=== PATIENT | male | born 1995 | race Caucasian/White ===

== ENCOUNTER 2022-08-22 10:42 | Outpatient (CLI) | payer MEDICAID | END 2022-08-22 23:59 | disposition critical access hospital (66) | LOC: EMS 10:42 | DX: E10.65 Type 1 diabetes mellitus with hyperglycemia (principal); R11.2 Nausea with vomiting, unspecified; R07.89 Other chest pain; R06.82 Tachypnea, not elsewhere classified; R00.0 Tachycardia, unspecified | CPT/HCPCS: A0425; A0427; A0999 ==

== ENCOUNTER 2022-08-22 11:17 | Inpatient (IN) | payer MEDICAID ==
[2022-08-22] MEDS ORDERED: SODIUM CHLORIDE 0.9% 1,000 ML IV STA ×2 (11:38→12:07)
[2022-08-22] MEDS ORDERED: ONDANSETRON 4 MG/2 ML VIAL IVP STA (11:38)
[2022-08-22 12:00] LABS: VBG BASE EXCESS -30.9 mmol/L (-2 - +2); VBG HCO3 3.2 mmol/L (23-28); VBG OXYGEN SATURATION 79.9 % (60-80); VBG PO2 59.2 mmHg (25-47); VBG TOTAL CO2 3.9 mmol/L (24-29)
[2022-08-22 12:01] LABS: BASOPHILS % (AUTO) 0.6 %; EOSINOPHILS % (AUTO) 0.3 %; HCT - HEMATOCRIT 48.2 % (42.0-52.0); HGB - HEMOGLOBIN 15.3 g/dL (14.0-18.0); LYMPHOCYTES % (AUTO) 11.8 %; MEAN CORPUSCULAR HEMOGLOBIN 30.2 pg (27.0-31.0); MEAN CORPUSCULAR HGB CONC 31.7 g/dL (32.0-36.0); MEAN CORPUSCULAR VOLUME 95.3 fL (80.0-94.0); MONOCYTES % (AUTO) 4.7 %; NEUTROPHILS % (AUTO) 79.5 %; PLT - PLATELET COUNT 445 10^3/uL (130-450); RED BLOOD COUNT 5.06 10^6/uL (4.70-6.10); RED CELL DISTRIBUTION WIDTH 12.8 % (12.0-15.0); WHITE BLOOD COUNT 26.6 x10^3/uL (4.8-10.8)
[2022-08-22 12:02] LABS: VBG PH 6.806 (7.31-7.41)
--- NOTE | 2022-08-22 12:03 | ED Physician Documentation ---
History of Present Illness - Stated complaint Stated Complaint: N/V - Chief complaint Chief Complaint: Abd Pain - Additonal information Additional information: 27-year-old male who is a type I diabetic presents to the emergency department for evaluation of uncontrolled nausea and vomiting that began at 1 AM. This patient is traveling here from [place] with his partner. Partner reports that the patient is on Lantus daily as well as NovoLog. Last took 8 units of NovoLog this morning. Went to a local walk-in clinic where blood glucose was over 400 and EMS was summoned. On presentation to the emergency department he has Kusmal breathing. He is lethargic but arousable. He is actively vomiting. Partner reports that he has had a few episodes of DKA over the last few years requiring hospitalization. Partner also reports that he has had TIA or strokelike events History otherwise limited by critical illness and inability to obtain other history Review of Systems Constitutional: denies: Fever GI: reports: Nausea PD PAST MEDICAL HISTORY - Allergies Allergies/Adverse Reactions: Allergies Allergy/AdvReac Type Severity Reaction Status Date / Time Penicillins Allergy Unknown Verified 08/22/22 11:26 Sulfa (Sulfonamide Allergy Unknown Verified 08/22/22 11:26 Antibiotics) PD ED PE EXPANDED - General General: Disheveled, poorly kept, In distress, Lethargic - HEENT HEENT: PERRL, Dry mucous membranes, Other (Grossly dry oral mucosa. Yellow stained teeth.) - Cardiac Cardiac: Tachy, Radial strong equal, Pedal strong equal, Cap refill < 2 sec - Respiratory Respiratory: Other (Cusamal breathing. Tachypneic. Coarse breath sounds bilaterally) - Abdomen Abdomen: Hyperactive BS, Tender to palpation (Generally tender to palpation but no guarding or rebound) - Derm Derm: Normal color, Warm and dry. No: Rash - Neuro Neuro: Confused, CNII-XII intact (Grossly intact on limited exam) - GCS Eye Opening: To Voice Motor: Obeys Commands Verbal: Confused Total: 13 Results - Vitals Vitals: Vital Signs - 24 hr 08/22/22 08/22/22 08/22/22 11:21 12:25 12:26 Temperature 36.3 C L Heart Rate 117 H 123 H 125 H Respiratory 40 H 31 H 40 H Rate Blood Pressure 154/83 H 147/129 H 155/85 H O2 Saturation 99 100 100 08/22/22 13:00 Temperature Heart Rate 123 H Respiratory 43 H Rate Blood Pressure 140/71 H O2 Saturation 99 Oxygen O2 Source Room air - EKG (time done) 1206 EKG releavant findings:: EKG personally interpreted by author of this note. Relevant findings are: Rate: Rate (enter#) (118), Tachy Rhythm: Sinus tachycardia Intervals: Normal DE. No: Prolonged QT QRS: Normal Ischemia: Normal ST segments, Hyperacute T waves (mildly peaked. K 5.7) Compare to prior EKG: Old EKG unavailable Computer interpretation: Agree with computer - Labs Labs: Laboratory Tests 08/22/22 08/22/22 08/22/22 11:23 11:53 11:53 WBC 26.6 H RBC 5.06 Hgb 15.3 Hct 48.2 MCV 95.3 H MCH 30.2 MCHC 31.7 L RDW 12.8 Plt Count 445 MPV 11.0 Neut # (Auto) Not Reportable Lymph # (Auto) Not Reportable Lane # (Auto) Not Reportable Eos # (Auto) Not Reportable Baso # (Auto) Not Reportable Absolute Nucleated RBC Not Reportable Total Counted 100 Band Neuts % (Manual) 17 H Abnorm Lymph % (Manual) 0 Metamyelocytes % 1 H Myelocytes % 2 H Nucleated RBC % Not Reportable Neutrophils # (Manual) 20.7 H Lymphocytes # (Manual) 4.3 H Monocytes # (Manual) 0.8 Eosinophils # (Manual) 0.0 Basophils # (Manual) 0.0 Differential Comment MANUAL DIFFERENTIAL Manual Slide Review Indicated WBC Morphology 1+ VACUOLATION Platelet Estimate INCREASED (>450,000) Platelet Morphology 1+ GIANT PLATELETS VBG pH VBG pCO2 VBG pO2 VBG HCO3 VBG Total CO2 VBG O2 Saturation VBG Base Excess Sodium 135 Potassium 5.7 H Chloride 109 Carbon Dioxide < 6 L* Anion Gap 20.0 H BUN 16 Creatinine 1.3 H Estimated GFR (MDRD) 67 L Glucose 496 H POC Whole Bld Glucose 491 H Lactic Acid Calcium 8.3 L Total Bilirubin 2.0 H AST 29 ALT 21 Alkaline Phosphatase 119 Total Protein 6.6 L Albumin 3.4 Globulin 3.2 Albumin/Globulin Ratio 1.1 Lipase 199 H Urine Color Urine Clarity Urine pH Ur Specific [place] Urine Protein Urine Glucose (UA) Urine Ketones Urine Occult Blood Urine Nitrite Urine Bilirubin Urine Urobilinogen Ur Leukocyte Esterase Urine RBC Urine WBC Ur Squamous Epith Cells Urine Bacteria Ur Microscopic Review Urine Culture Comments Urine Opiates Screen Ur Oxycodone Screen Urine Methadone Screen Ur Propoxyphene Screen Ur Barbiturates Screen Ur Tricyclics Screen Ur Phencyclidine Scrn Ur Amphetamine Screen U Methamphetamines Scrn U Benzodiazepines Scrn Urine Cocaine Screen U Cannabinoids Screen Serum Ketones LARGE H 08/22/22 08/22/22 08/22/22 11:53 11:53 12:18 WBC RBC Hgb Hct MCV MCH MCHC RDW Plt Count MPV Neut # (Auto) Lymph # (Auto) Lane # (Auto) Eos # (Auto) Baso # (Auto) Absolute Nucleated RBC Total Counted Band Neuts % (Manual) Abnorm Lymph % (Manual) Metamyelocytes % Myelocytes % Nucleated RBC % Neutrophils # (Manual) Lymphocytes # (Manual) Monocytes # (Manual) Eosinophils # (Manual) Basophils # (Manual) Differential Comment Manual Slide Review WBC Morphology Platelet Estimate Platelet Morphology VBG pH 6.806 L VBG pCO2 21.0 L VBG pO2 59.2 H VBG HCO3 3.2 L VBG Total CO2 3.9 L VBG O2 Saturation 79.9 VBG Base Excess -30.9 L Sodium Potassium Chloride Carbon Dioxide Anion Gap BUN Creatinine Estimated GFR (MDRD) Glucose POC Whole Bld Glucose Lactic Acid 3.4 H* Calcium Total Bilirubin AST ALT Alkaline Phosphatase Total Protein Albumin Globulin Albumin/Globulin Ratio Lipase Urine Color LIGHT YELLOW Urine Clarity CLEAR Urine pH 5.5 Ur Specific [place] >=1.030 H Urine Protein 30 H Urine Glucose (UA) 500 H Urine Ketones >=80 H Urine Occult Blood SMALL H Urine Nitrite NEGATIVE Urine Bilirubin NEGATIVE Urine Urobilinogen 0.2 (NORMAL) Ur Leukocyte Esterase NEGATIVE Urine RBC None Seen Urine WBC 0-3 Ur Squamous Epith Cells RARE Squamous Urine Bacteria None Seen Ur Microscopic Review INDICATED Urine Culture Comments NOT INDICATED Urine Opiates Screen NEGATIVE Ur Oxycodone Screen NEGATIVE Urine Methadone Screen NEGATIVE Ur Propoxyphene Screen NEGATIVE Ur Barbiturates Screen NEGATIVE Ur Tricyclics Screen NEGATIVE Ur Phencyclidine Scrn NEGATIVE Ur Amphetamine Screen NEGATIVE U Methamphetamines Scrn NEGATIVE U Benzodiazepines Scrn NEGATIVE Urine Cocaine Screen NEGATIVE U Cannabinoids Screen NEGATIVE Serum Ketones - Rads (name of study) cxr Relevant Findings:: Final report received (No acute cardiopulmonary process) PD Medical Decision Making - ED course Complexity details: reviewed results, re-evaluated patient, d/w patient ED course: 27-year-old male who is a type I diabetic presents the emergency department for evaluation of uncontrolled nausea and vomiting that began at 1 AM. He is on NovoLog and long-acting Lantus only. Unclear of last time these medications were administered. He did go to a local walk-in clinic where they found a blood glucose greater than 400 and he was transferred here via EMS. Initial blood glucose here is 491. On presentation the patient appears to be in DKA with kusmal breathing. He is mildly lethargic. Patient presents is tachycardic with a heart rate in the 120s. He is normotensive. He has brisk cap refill. Given history and assuming DKA, we placed 2 large-bore IVs and I ordered 2 L of IV fluids to begin. Initial VBG shows severe acidosis with a pH of 6.8, CO2 of 20 and a Base deficit of -30. He has a large serum ketones. Patient is profoundly acidotic. His CO2 is less than 6 on serum labs. Pt has serum lactate of 3.4 He does have preserved renal function. Initial potassium was 5.7. His EKG was sinus tachycardia did have mildly peaked T waves. I would expect this to improve as he is given insulin which will likely drive potassium intracellular resolving these peaked T waves. CBC shows marked leukocytosis with a white count of 26,000. UA is negative for markers of infection. Chest x-ray shows no acute focal opacities or findings of pneumonia. Blood cultures x2 are pending. Res PCR pending. We will defer antibiotics to the inpatient hospitalist team. Clinically history and exam is consistent with DKA. I have ordered the DKA pathway and initiated insuling gtt once his potassium value was known and I spoke with Dr. Tong hospitalist who graciously agrees to bring the patient in for further evaluation and management of his DKA. This patient will be ad mitted to the ICU. - Critical Care Time(min): 30 Time Includes: Direct patient care, Review records, Reassess patient Data interpretation: Labs, ABG, CXR Departure - Departure Disposition: [facility] DC/Xfer Clinical Impression: DKA, type 1 Qualifiers: Diabetes mellitus complication detail: with coma Qualified Code(s): E10.11 - Type 1 diabetes mellitus with ketoacidosis with coma Condition: Critical
[2022-08-22 12:07] LABS: SLIDE REVIEW? Indicated
[2022-08-22 12:08] LABS: KETONES, SERUM (ACETEST) LARGE (NEGATIVE)
[2022-08-22] MEDS ORDERED: INSULIN REGULAR HUMAN 300 UNIT/3 ML VIAL IVP STA (12:09)
[2022-08-22 12:16] LABS: ALBUMIN 3.4 g/dL (3.2-5.5); ALBUMIN/GLOBULIN RATIO 1.1 (1.0-2.2); ALKALINE PHOSPHATASE 119 IU/L (42-121); ALT ALANINE AMINOTRANSFERASE 21 IU/L (10-60); AST ASPARTATE AMINOTRANSFERASE 29 IU/L (10-42); BUN - BLOOD UREA NITROGEN 16 mg/dL (6-20); CHLORIDE 109 mmol/L (101-111); CREATININE 1.3 mg/dL (0.6-1.2); GFR - MDRD 67 (>89); GLUCOSE 496 mg/dL (70-100); LIPASE 199 U/L (22-51); TOTAL PROTEIN 6.6 g/dL (6.7-8.2)
--- NOTE | 2022-08-22 12:26 | XRAY Report ---
PROCEDURE: Chest 1 View X-Ray INDICATIONS: chest pain TECHNIQUE: One view of the chest was acquired. COMPARISON: None. FINDINGS: Surgical changes and devices: None. Lungs and pleura: No pleural effusions or pneumothorax. Lungs are clear. Mediastinum: Mediastinal contours appear normal. Heart size is normal. Bones and chest wall: No suspicious bony lesions. Overlying soft tissues appear unremarkable. IMPRESSION: Chest without acute cardiopulmonary abnormalities or focal airspace disease. Reviewed by: Yg Garces MD on 08/22/2022 12:25 PM PDT Approved by: Yg Garces MD on 08/22/2022 12:25 PM PDT Station ID: [id number]
[2022-08-22 12:28] LABS: ABNORMAL LYMPHS % (MANUAL) 0 %
[2022-08-22 12:33] LABS: MUDS CUTOFF CONCENTRATIONS CUTOFF CONC BELOW:
[2022-08-22] MEDS: INSULIN REGULAR IN 0.9 % NS 100 UNIT/100 ML BAG IV STA ×2 (12:34→14:06)
[2022-08-22 12:37] LABS: BILIRUBIN,URINE NEGATIVE (NEGATIVE); GLUCOSE, URINE (UA) 500 mg/dL (NEGATIVE); KETONES,URINE (UA) >=80 mg/dL (NEGATIVE); LEUKOCYTE ESTERASE, URINE NEGATIVE (NEGATIVE); NITRITE,URINE NEGATIVE (NEGATIVE); OCCULT BLOOD,URINE SMALL (NEGATIVE); PH,URINE 5.5 PH (5.0-7.5); PROTEIN,URINE 30 mg/dL (NEGATIVE); UROBILINOGEN,URINE 0.2 (NORMAL) E.U./dL (NORMAL)
[2022-08-22 12:39] LABS: CLARITY,URINE CLEAR (CLEAR)
[2022-08-22 12:40] LABS: CALCIUM 8.3 mg/dL (8.5-10.3); POTASSIUM 5.7 mmol/L (3.5-5.0); SODIUM 135 mmol/L (135-145)
[2022-08-22 12:47] LABS: CARBON DIOXIDE - CO2 < 6 mmol/L (21-32)
[2022-08-22 12:53] LABS: AMPHETAMINE SCREEN,URINE NEGATIVE (NEGATIVE); BACTERIA,URINE None Seen /HPF (None Seen); BARBITURATE SCREEN,UR NEGATIVE (NEGATIVE); BENZODIAZEPINES SCREEN, URINE NEGATIVE (NEGATIVE); COCAINE SCREEN URINE NEGATIVE (NEGATIVE); METHADONE SCREEN, URINE NEGATIVE (NEGATIVE); METHAMPHETAMINES SCREEN, URINE NEGATIVE (NEGATIVE); OPIATE SCREEN, URINE NEGATIVE (NEGATIVE); OXYCODONE SCREEN, URINE NEGATIVE (NEGATIVE); PROPOXYPHENE SCREEN, URINE NEGATIVE (NEGATIVE); RBC,URINE None Seen /HPF (0-5); SQUAMOUS EPITHELIAL CELL,UR RARE Squamous (<= Few); THC CANNABINOID SCREEN, URINE NEGATIVE (NEGATIVE); TRICYCLIC ANTIDEPRESSANT,URINE NEGATIVE (NEGATIVE); WBC,URINE 0-3 /HPF (0-3)
[2022-08-22 12:58] LABS: BAND NEUTROPHILS % (MANUAL) 17 %; LYMPHOCYTES # (MANUAL) 4.3 10^3/uL (1.5-3.5); LYMPHOCYTES % (MANUAL) 16 %; METAMYELOCYTES % (MANUAL) 1 %; MONOCYTES # (MANUAL) 0.8 10^3/uL (0.0-1.0); MYELOCYTES % (MANUAL) 2 %; NEUTROPHILS # (MANUAL) 20.7 10^3/uL (1.5-6.6)
[2022-08-22 12:59] LABS: DIFFERENTIAL COMMENT MANUAL DIFFERENTIAL; PLATELET ESTIMATE, MANUAL INCREASED (>450,000) (NORMAL); PLATELET MORPHOLOGY 1+ GIANT PLATELETS (NORMAL); WBC MORPHOLOGY (MULTIPLE) 1+ VACUOLATION (NORMAL)
[2022-08-22] MEDS ORDERED: PROCHLORPERAZINE 10 MG/2 ML VIAL IVP PRN (13:00)
--- NOTE | 2022-08-22 13:12 | HISTORY & PHYSICAL EXAMINATION ---
Chief Complaint - Chief Complaint Chief Complaint: N/V, glu >400 at a clinic and ambulance was summoned History of Present Illness - Admitted From Admitted From:: ED - History Obtained From History obtained from: ED provider, mother on phone, pt and girlfriend Madeleine at bedside - History of Present Illness HPI Comment/Other: This is a 27-year-old male with a history of type 1 diabetes diagnosed at age 19. He also has a history of ADHD with depression and does not want to take medications, according to his mother. He has a history of a quadricuspid aortic valve and does not want to see Cos[employer] Machine [employer]. The patient has had 2 episodes of DKA since age 19, both were with hospitalizations at [facility] in [place], where he lives. The patient is traveling to [facility] from [place] with his girlfriend, they left yesterday, to visit the girlfriend's family who lives on [facility] [address]. Yesterday he felt fine as he left, according to the mother. When they arrived at the home on [facility] [address], they were given well water and the girlfriend says it tasted like metal and the patient says it "tasted like blood". The girlfriend added that it tasted like blood because he had a cut lip and was probably swallowing some of his own blood. He started vomiting yesterday. Today he was taken to a clinic by family members and his glucose was found to be over 400 and an ambulance was contacted to bring him to the ER. The patient was having rapid breathing, was in severe distress with nausea and vomiting, and work-up showed that he has a pH of 6.9, elevated anion gap, large serum ketones, and glucose 497. He was started on IV fluids and the DKA protocol in the ED. The ED provider contacted me and we discussed this patient. He will be admitted to the ICU for DKA protocol. Patient continues to have abdominal discomfort and is nauseated but is thirsty. He denies any recent URI, fever, cough, diarrhea or other symptoms, until his N/V started. His mother reported to me that he does not check his sugar often enough. The patient says he checks it about 2 times a day. He is taking both long-acting and short acting insulin. History - Past Medical History Cardiovascular: reports: Valve disorder (Quadricuspid valve) Neuro: reports: TIA (1 year ago, sx were facial dropp abnormal speech and confusion.) Endocrine/Autoimmune: reports: Type 1 diabetes Psych: reports: Depression (Mother reports that the patient refuses to take meds for these Dx), ADD/ADHD - Family & Social History Family History: Mother: Alive and Well, Father: Cancer (Father has bipolar disorder, and several cancers) Living arrangement: At home Living Situation: With family Social History Notes: The patient lives with his grandmother, which is next door to where his mother lives. Girlfriend lives with her parents, not with this patient. 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 Cording to his mother, he does not smoke cigarettes and does not use illicit drugs. - Substance History Use: Uses substance without health or social issues: NONE Meds/Allgy - Home Medications Home Medications: Ambulatory Orders Medication Instructions Recorded Confirmed Insulin Aspart [Novolog Flexpen] 5 - 20 unit SQ TIDWM MDD 80 UNITS 08/22/22 08/22/22 - Allergies Allergies/Adverse Reactions: Allergies Allergy/AdvReac Type Severity Reaction Status Date / Time Penicillins Allergy Unknown Verified 08/22/22 11:26 Sulfa (Sulfonamide Allergy Unknown Verified 08/22/22 11:26 Antibiotics) Review of Systems - Gastrointestinal Gastrointestinal: reports: Abdominal pain, Nausea, Vomiting - All Other Systems All Other Systems: reports: Reviewed and negative Exam - Vital Signs Vital Signs: Vital Signs x48h Temp Pulse Resp BP Pulse Ox 08/22/22 13:00 123 H 43 H 140/71 H 99 08/22/22 12:26 125 H 40 H 155/85 H 100 08/22/22 12:25 123 H 31 H 147/129 H 100 08/22/22 11:21 36.3 C L 117 H 40 H 154/83 H 99 - Physical Exam General Appearance: positive: Moderate distress (from N/V, is tachypnic and appears anxious) Eyes Bilateral: positive: Normal inspection, No lid inflammation ENT: positive: Dry mucous membranes Neck: positive: Nml inspection, No JVD Respiratory: positive: Breath sounds nml Cardiovascular: positive: Regular rate & rhythm, No murmur, Tachycardia Abdomen: positive: Non-tender, No distention Skin: positive: Warm, Dry Extremities: positive: Non-tender, No pedal edema Neurologic/Psychiatric: positive: Oriented x3, Motor nml, Other (Appears anxious) Conclusion/Plan - Problem List (1) DKA, type 1 Conclusion/Plan: Details of how he started to get ill were not yet known in ER, as he was too lethargic to give a detailed history. I obtained Hx from mother. He did report to me the well water intake, which lead to vomiting. Plan: We will admit him to the ICU, started DKA protocol, close follow-up of his serum ketones, glucose level, electrolytes Continue aggressive iv fluids Start iv Bicarb drip Give IV antiemetics and diet will be NPO except ice chips and clear water sips. Check A1c with a.m. labs We will request a nutrition consult as well, to give recommendations going forward Will research if any bacteria may be suspected from well water intake. If he develops diarrhea, will send stool for bacterial cultures. Qualifiers: Qualified Code(s): E10.11 - Type 1 diabetes mellitus with ketoacidosis with coma (2) ADHD Conclusion/Plan: According to his mother this patient has ADHD with depression but refuses to take any meds for this. Today he appears very anxious, on top of having tachypnea due to his metabolic acidosis. Plan: Will order prn iv Ativan to treat his anxiety Await for a reconciled med list by pharmacy to start any other meds. (3) History of TIA (transient ischemic attack) Conclusion/Plan: If that was the final Dx, he should be on daily baby aspirin. Plan: Will await finalized med list from pharmacy and resume it - Lab Results Fish Bones: 08/22/22 11:53 08/22/22 18:15 - Diagnostic Imaging Results Diagnostic Imaging Results: positive: Final report reviewed - Other Other Results/Comments: Attestation: The patient is expected to admitted > 2 midnight and to be discharged or transferred to another facility within 96 hours: Yes.
[2022-08-22 13:43] LABS: VBG PCO2 21.2 mmHg (41-51)
[2022-08-22 13:44] LABS: VBG HCO3 2.6 mmol/L (23-28); VBG PO2 61.3 mmHg (25-47)
[2022-08-22 13:45] LABS: VBG BASE EXCESS -33.7 mmol/L (-2 - +2); VBG TOTAL CO2 3.3 mmol/L (24-29)
[2022-08-22 13:48] LABS: VBG PH 6.711 (7.31-7.41)
[2022-08-22] MEDS ORDERED: SODIUM CHLORIDE 0.9% 1,000 ML IV SCH (14:00)
[2022-08-22 14:01] LABS: BUN - BLOOD UREA NITROGEN 17 mg/dL (6-20); CALCIUM 7.9 mg/dL (8.5-10.3); CHLORIDE 111 mmol/L (101-111); CREATININE 1.3 mg/dL (0.6-1.2); GFR - MDRD 67 (>89); GLUCOSE 397 mg/dL (70-100); MAGNESIUM 2.6 mg/dL (1.7-2.8); POTASSIUM 5.7 mmol/L (3.5-5.0); SODIUM 139 mmol/L (135-145)
[2022-08-22] MEDS ORDERED: SODIUM BICARBONATE ABBOJECT 50 MEQ/50 ML SYRINGE IVP ONE (14:01)
[2022-08-22 14:02] LABS: B. PARAPERTUSSIS- RESP PCR PAN NOT DETECTED; B. PERTUSSIS- RESP PCR PANEL NOT DETECTED; C. PNEUMONIAE- RESP PCR PANEL NOT DETECTED; CORONAVIRUS 229E-RESP PCR NOT DETECTED; CORONAVIRUS HKU1-RESP PCR NOT DETECTED; CORONAVIRUS NL63-RESP PCR NOT DETECTED; CORONAVIRUS OC43-RESP PCR NOT DETECTED; HUMAN METAPNEUMOVIRUS NOT DETECTED; INFLUENZA A- RESP PCR PANEL NOT DETECTED; INFLUENZA B - RESP PCR PANEL NOT DETECTED; M. PNEUMONIAE- RESP PCR PANEL NOT DETECTED; PARAINFLUENZA VIRUS 1 NOT DETECTED; PARAINFLUENZA VIRUS 2 NOT DETECTED; PARAINFLUENZA VIRUS 3 NOT DETECTED; PARAINFLUENZA VIRUS 4 NOT DETECTED; RHINOVIRUS/ENTEROVIRUS NOT DETECTED; RSV- RESP PCR PANEL NOT DETECTED; SARS-CoV-2 -RESP PCR PANEL NOT DETECTED
[2022-08-22 14:04] LABS: CARBON DIOXIDE - CO2 < 6 mmol/L (21-32)
[2022-08-22] MEDS: ONDANSETRON 4 MG/2 ML VIAL IVP PRN ×2 (14:04→20:50)
[2022-08-22 14:09] LABS: KETONES, SERUM (ACETEST) LARGE (NEGATIVE)
[2022-08-22] MEDS ORDERED: SODIUM BICARBONATE 8.4% 50 MEQ/50 ML VIAL ONE (14:15)
[2022-08-22] MEDS: SODIUM BICARBONATE 150 MEQ in DEXTROSE 5% 1,000 ML IV SCH (14:37)
[2022-08-22 14:41] LABS: KETONES, SERUM (ACETEST) LARGE (NEGATIVE)
[2022-08-22 14:50] LABS: BUN - BLOOD UREA NITROGEN 16 mg/dL (6-20); CHLORIDE 112 mmol/L (101-111); CREATININE 1.3 mg/dL (0.6-1.2); GFR - MDRD 67 (>89); GLUCOSE 338 mg/dL (70-100); MAGNESIUM 2.6 mg/dL (1.7-2.8); SODIUM 138 mmol/L (135-145)
[2022-08-22 14:51] LABS: POTASSIUM 5.8 mmol/L (3.5-5.0)
[2022-08-22 14:52] LABS: CARBON DIOXIDE - CO2 < 6 mmol/L (21-32)
[2022-08-22] MEDS: INSULIN REGULAR IN 0.9 % NS 100 UNIT/100 ML BAG IV SCH (15:00)
[2022-08-22] MEDS ORDERED: LORazepam 2 MG/ML VIAL IVP PRN ×3 (15:20→19:26)
[2022-08-22 16:24] LABS: KETONES, SERUM (ACETEST) MODERATE (NEGATIVE)
[2022-08-22] MEDS: SODIUM CHLORIDE FLUSH 0.9% 10 ML SYRINGE IVP SCH (16:30)
[2022-08-22 16:37] LABS: BUN - BLOOD UREA NITROGEN 15 mg/dL (6-20); CHLORIDE 114 mmol/L (101-111); CREATININE 1.4 mg/dL (0.6-1.2); GFR - MDRD 62 (>89); GLUCOSE 197 mg/dL (70-100); MAGNESIUM 2.3 mg/dL (1.7-2.8); POTASSIUM 4.9 mmol/L (3.5-5.0); SODIUM 143 mmol/L (135-145)
[2022-08-22 16:40] LABS: CARBON DIOXIDE - CO2 6 mmol/L (21-32)
[2022-08-22] MEDS ORDERED: DEXTROSE 5% 1,000 ML IV ONE (17:04)
[2022-08-22] MEDS: DEXTROSE 5% 1,000 ML IV SCH (17:07)
[2022-08-22 18:25] LABS: KETONES, SERUM (ACETEST) MODERATE (NEGATIVE)
[2022-08-22 18:28] LABS: GLUCOSE 117 mg/dL (70-100)
[2022-08-22] MEDS: SODIUM CHLORIDE 0.9% 1,000 ML IV SCH ×2 (19:57→21:49)
[2022-08-22] MEDS: ACETAMINOPHEN 325 MG TABLET PO PRN (20:45)
[2022-08-22] MEDS: FAMOTIDINE 20 MG/2 ML VIAL IVP SCH (20:46)
[2022-08-22 22:23] LABS: CALCIUM, IONIZED 1.12 mmol/L (1.15-1.33)
[2022-08-22 22:27] LABS: VBG PH 7.022 (7.31-7.41)
[2022-08-22 22:31] LABS: PHOSPHORUS 3.3 mg/dL (2.5-4.6); POTASSIUM 4.6 mmol/L (3.5-5.0)
[2022-08-23] MEDS: SODIUM CHLORIDE 0.9% 1,000 ML IV SCH ×5 (00:06→17:14)
[2022-08-23] MEDS: SODIUM BICARBONATE 150 MEQ in DEXTROSE 5% 1,000 ML IV SCH (01:54)
[2022-08-23] MEDS: INSULIN REGULAR IN 0.9 % NS 100 UNIT/100 ML BAG IV SCH ×3 (02:17→20:42)
[2022-08-23] MEDS: SODIUM CHLORIDE FLUSH 0.9% 10 ML SYRINGE IVP SCH ×3 (02:17→17:14)
[2022-08-23 04:34] LABS: BASOPHILS % (AUTO) 0.2 %; HCT - HEMATOCRIT 37.8 % (42.0-52.0); HGB - HEMOGLOBIN 12.9 g/dL (14.0-18.0); LYMPHOCYTES # (AUTO) 1.2 10^3/uL (1.5-3.5); LYMPHOCYTES % (AUTO) 7.2 %; MEAN CORPUSCULAR HEMOGLOBIN 30.9 pg (27.0-31.0); MEAN CORPUSCULAR HGB CONC 34.1 g/dL (32.0-36.0); MEAN CORPUSCULAR VOLUME 90.4 fL (80.0-94.0); MEAN PLATELET VOLUME 10.4 fL (7.4-11.4); MONOCYTES # (AUTO) 1.3 10^3/uL (0.0-1.0); NEUTROPHILS # (AUTO) 13.7 10^3/uL (1.5-6.6); PLT - PLATELET COUNT 233 10^3/uL (130-450); RED BLOOD COUNT 4.18 10^6/uL (4.70-6.10); WHITE BLOOD COUNT 16.3 x10^3/uL (4.8-10.8)
[2022-08-23 04:35] LABS: CALCIUM, IONIZED 1.08 mmol/L (1.15-1.33); VBG PH 7.342 (7.31-7.41)
[2022-08-23] MEDS: DEXTROSE 5% 1,000 ML IV SCH ×2 (05:05→17:12)
[2022-08-23 05:15] LABS: CALCIUM 7.6 mg/dL (8.5-10.3); CREATININE 1.1 mg/dL (0.6-1.2); PHOSPHORUS 1.9 mg/dL (2.5-4.6); POTASSIUM 3.2 mmol/L (3.5-5.0)
[2022-08-23] MEDS ORDERED: POTASSIUM PHOSPHATE 15 MMOL in SODIUM CHLORIDE 0.9% 250 ML IV ONE (05:23)
[2022-08-23] MEDS ORDERED: CALCIUM GLUC 1,000MG/50ML-NACL 1,000 MG/50 ML BAG IV ONE (05:24)
[2022-08-23] MEDS ORDERED: POTASSIUM CHLOR 10 MEQ/100 ML 10 MEQ/100 ML BAG IV SCH ×3 (06:00→07:00)
[2022-08-23 07:58] LABS: CALCIUM, IONIZED 1.13 mmol/L (1.15-1.33); VBG PH 7.344 (7.31-7.41)
[2022-08-23] MEDS: POTASSIUM CHLOR 10 MEQ/100 ML 10 MEQ/100 ML BAG IV SCH ×10 (09:05→22:58)
[2022-08-23] MEDS: FAMOTIDINE 20 MG/2 ML VIAL IVP SCH ×2 (09:05→20:37)
[2022-08-23 10:43] LABS: ESTIMATED AVERAGE GLUCOSE 235 mg/dL (70-100); HEMOGLOBIN A1c% 9.8 % (4.27-6.07)
--- NOTE | 2022-08-23 11:00 | PHARMACY PROGRESS NOTE ---
- Best Possible Medication History Admit Date and Time: 08/22/22 0210 Processed by: Pharmacy Medication History completed: Yes Patient Interview: Pt unable to participate Secondary Source(s): [facility] records ([facility]. PT HAD SHORT COURSE OF KCL IN JUNE, MEQ, X ~ 7 DAYS.), Insurance records As the person ultimately responsible for medication therapy, providers are able to order a medication from an existing home medication list in [facility] via the "Reconcile Routine" prior to Confirmation of that medication by application support. Such practice is discouraged except when the physician, in their clinical judgment, deems that a medical need exists for a medication without regard to previous use.
[2022-08-23 11:26] LABS: GLUCOSE, URINE (UA) 250 mg/dL (NEGATIVE); KETONES,URINE (UA) 40 mg/dL (NEGATIVE); LEUKOCYTE ESTERASE, URINE NEGATIVE (NEGATIVE); NITRITE,URINE NEGATIVE (NEGATIVE); OCCULT BLOOD,URINE MODERATE (NEGATIVE); PROTEIN,URINE 30 mg/dL (NEGATIVE); UROBILINOGEN,URINE 0.2 (NORMAL) E.U./dL (NORMAL)
[2022-08-23 11:33] LABS: BILIRUBIN,URINE NEGATIVE (NEGATIVE); CLARITY,URINE CLOUDY (CLEAR); ICTOTEST,URINE NEGATIVE
[2022-08-23 11:35] LABS: BACTERIA,URINE Few /HPF (None Seen); RBC,URINE 0-5 /HPF (0-5); SQUAMOUS EPITHELIAL CELL,UR NONE SEEN (<= Few); WBC,URINE 0-3 /HPF (0-3)
[2022-08-23 11:36] LABS: AMORPHOUS SEDIMENT,UR Moderate /LPF
--- NOTE | 2022-08-23 13:19 | CT Report ---
PROCEDURE: ABDOMEN/PELVIS WO INDICATIONS: N/V, elevated Lipase. Eval for Pancreatitis TECHNIQUE: Noncontrast 5 mm thick sections acquired from the diaphragms to the symphysis. 5 mm coronal and sagi ttal reformats were then performed. For radiation dose reduction, the following was used: automated exposure control, adjustment of mA and/or kV according to patient size. COMPARISON: None. FINDINGS: Image quality: Excellent. Evaluation of the solid parenchymal organs is limited without IV contrast. Kidneys and ureters: No hydronephrosis. No renal cystic lesion which requires follow up. No solid mas s. Bladder: Bladder is decompressed with Valenzuela catheter. OTHER: Lung bases and heart: Unremarkable. Liver: Focal fatty eventration at the falciform ligament. Gallbladder and biliary tree: Not distended. No calcified gallstones. Spleen: No splenomegaly. Pancreas: Trace fluid near the tail the pancreas. Adrenals: No adrenal nodule. Bowel and peritoneum: Inflammatory change about the duodenal C-loop, (). Stomach is not significa ntly distended. No small bowel obstruction. Normal appendix. Lymph nodes: No central or retroperitoneal adenopathy. Vessels: No infrarenal aortic aneurysm. Reproductive organs: Small amount of free fluid in the pelvis. Pelvic lymph nodes: No adenopathy by size criteria. Bones: No aggressive osseous abnormality. Other: No significant ventral or inguinal hernia. IMPRESSION: 1. Inflammatory change about the pancreas and duodenum none. Findings in keeping with acute interstit ial edematous pancreatitis and/or duodenitis. No loculated appearing collection at this time. 2. Small amount of free fluid in the pelvis. 3. No kidney stones. No hydronephrosis. Reviewed by: Arvin Bridges MD on 08/23/2022 1:18 PM PDT Approved by: Arvin Bridges MD on 08/23/2022 1:18 PM PDT Station ID: [id number]
--- NOTE | 2022-08-23 13:52 | PROVIDER PROGRESS NOTE ---
Subjective - Subjective Pt reports feeling: Improved (No more yachypnea, less abd pain, but vomited water at 0300) Objective - Vital Signs/Intake & Output Vital Signs: Vital Signs Temp Pulse Resp BP Pulse Ox 08/23/22 13:00 106 H 18 139/88 H 100 08/23/22 12:00 111 H 20 136/93 H 100 08/23/22 11:19 37.1 C 08/23/22 11:00 112 H 19 138/93 H 99 08/23/22 10:00 120 H 23 141/95 H 95 Intake & Output: Intake & Output 08/20/22 08/21/22 08/22/22 08/23/22 23:59 23:59 23:59 23:59 Intake Total 6034.238 4720.849 Output Total 3885 2390 Balance 2149.238 2330.849 - Objective General Appearance: positive: No acute distress, Lethargic (sleeping most of the day) Eyes Bilateral: positive: Normal inspection ENT: positive: No signs of dehydration Neck: positive: Nml inspection Respiratory: positive: No respiratory distress, Breath sounds nml Cardiovascular: positive: Regular rate & rhythm, No murmur Abdomen: positive: No distention, Tenderness (minimal) Skin: positive: Warm, Dry Extremities: positive: Non-tender, No pedal edema Neurologic/Psychiatric: positive: Oriented x3, Motor nml - Lab Results Fish Bones: 08/23/22 04:25 08/23/22 14:56 Other Labs: Lab Results x24hrs 08/23/22 08/23/22 08/23/22 Range/Units 13:03 12:09 11:18 WBC (4.8-10.8) x10^3/uL RBC (4.70-6.10) 10^6/uL Hgb (14.0-18.0) g/dL Hct (42.0-52.0) % MCV (80.0-94.0) fL MCH (27.0-31.0) pg MCHC (32.0-36.0) g/dL RDW (12.0-15.0) % Plt Count (130-450) 10^3/uL MPV (7.4-11.4) fL Neut # (Auto) (1.5-6.6) 10^3/uL Lymph # (Auto) (1.5-3.5) 10^3/uL [place] # (Auto) (0.0-1.0) 10^3/uL Eos # (Auto) (0.0-0.7) 10^3/uL Baso # (Auto) (0.0-0.1) 10^3/uL Absolute Nucleated RBC x10^3/uL Nucleated RBC % /100WBC VBG pH (7.31-7.41) Ionized Calcium (1.15-1.33) mmol/L Sodium (135-145) mmol/L Potassium (3.5-5.0) mmol/L Chloride (101-111) mmol/L Carbon Dioxide (21-32) mmol/L Anion Gap BUN (6-20) mg/dL Creatinine (0.6-1.2) mg/dL Estimated GFR (MDRD) (>89) Glucose (70-100) mg/dL POC Whole Bld Glucose 263 H 213 H (70 - 100) mg/dL Estimat Average Glucose (70-100) mg/dL Hemoglobin A1c % (4.27-6.07) % Calcium (8.5-10.3) mg/dL Phosphorus (2.5-4.6) mg/dL Magnesium (1.7-2.8) mg/dL Triglycerides ( - 149) mg/dL Lipase (22-51) U/L Urine Color Urine Clarity (CLEAR) Urine pH (5.0-7.5) PH Ur Specific [place] (1.002-1.030) Urine Protein (NEGATIVE) mg/dL Urine Glucose (UA) (NEGATIVE) mg/dL Urine Ketones (NEGATIVE) mg/dL Urine Occult Blood (NEGATIVE) Urine Nitrite (NEGATIVE) Urine Bilirubin (NEGATIVE) Urine Urobilinogen (NORMAL) E.U./dL Ur Leukocyte Esterase (NEGATIVE) Urine RBC (0-5) /HPF Urine WBC (0-3) /HPF Ur Squamous Epith Cells (<= Few) Amorphous Sediment /LPF Urine Bacteria (None Seen) /HPF Ur Microscopic Review Urine Culture Comments Nasal Adenovirus (PCR) Nasal B. parapertussis DNA (PCR) Nasal Coronavir 229E PCR Nasal Coronavir HKU1 PCR Nasal Coronavir NL63 PCR Nasal Coronavir OC43 PCR Nasal Enterovir/Rhinovir PCR Nasal Influenza B PCR Nasal Influenza A PCR Nasal Parainfluen 1 PCR Nasal Parainfluen 2 PCR Nasal Parainfluen 3 PCR Nasal Parainfluen 4 PCR Nasal RSV (PCR) Nasal Screen MRSA (PCR) (NEGATIVE) Nasal B.pertussis DNA PCR Nasal C.pneumoniae (PCR) Sudeep Human Metapneumo PCR Nasal M.pneumoniae (PCR) Nasal SARS-CoV-2 (PCR) Serum Ketones SMALL H (NEGATIVE) 08/23/22 08/23/22 08/23/22 Range/Units 11:00 10:43 09:50 WBC (4.8-10.8) x10^3/uL RBC (4.70-6.10) 10^6/uL Hgb (14.0-18.0) g/dL Hct (42.0-52.0) % MCV (80.0-94.0) fL MCH (27.0-31.0) pg MCHC (32.0-36.0) g/dL RDW (12.0-15.0) % Plt Count (130-450) 10^3/uL MPV (7.4-11.4) fL Neut # (Auto) (1.5-6.6) 10^3/uL Lymph # (Auto) (1.5-3.5) 10^3/uL [place] # (Auto) (0.0-1.0) 10^3/uL Eos # (Auto) (0.0-0.7) 10^3/uL Baso # (Auto) (0.0-0.1) 10^3/uL Absolute Nucleated RBC x10^3/uL Nucleated RBC % /100WBC VBG pH (7.31-7.41) Ionized Calcium (1.15-1.33) mmol/L Sodium (135-145) mmol/L Potassium (3.5-5.0) mmol/L Chloride (101-111) mmol/L Carbon Dioxide (21-32) mmol/L Anion Gap BUN (6-20) mg/dL Creatinine (0.6-1.2) mg/dL Estimated GFR (MDRD) (>89) Glucose (70-100) mg/dL POC Whole Bld Glucose 189 H 177 H (70 - 100) mg/dL Estimat Average Glucose (70-100) mg/dL Hemoglobin A1c % (4.27-6.07) % Calcium (8.5-10.3) mg/dL Phosphorus (2.5-4.6) mg/dL Magnesium (1.7-2.8) mg/dL Triglycerides ( - 149) mg/dL Lipase (22-51) U/L Urine Color YELLOW Urine Clarity CLOUDY (CLEAR) Urine pH 6.0 (5.0-7.5) PH Ur Specific [place] >=1.030 H (1.002-1.030) Urine Protein 30 H (NEGATIVE) mg/dL Urine Glucose (UA) 250 H (NEGATIVE) mg/dL Urine Ketones 40 H (NEGATIVE) mg/dL Urine Occult Blood MODERATE H (NEGATIVE) Urine Nitrite NEGATIVE (NEGATIVE) Urine Bilirubin NEGATIVE (NEGATIVE) Urine Urobilinogen 0.2 (NORMAL) (NORMAL) E.U./dL Ur Leukocyte Esterase NEGATIVE (NEGATIVE) Urine RBC 0-5 (0-5) /HPF Urine WBC 0-3 (0-3) /HPF Ur Squamous Epith Cells NONE SEEN (<= Few) Amorphous Sediment Moderate /LPF Urine Bacteria Few (None Seen) /HPF Ur Microscopic Review INDICATED Urine Culture Comments NOT INDICATED Nasal Adenovirus (PCR) Nasal B. parapertussis DNA (PCR) Nasal Coronavir 229E PCR Nasal Coronavir HKU1 PCR Nasal Coronavir NL63 PCR Nasal Coronavir OC43 PCR Nasal Enterovir/Rhinovir PCR Nasal Influenza B PCR Nasal Influenza A PCR Nasal Parainfluen 1 PCR Nasal Parainfluen 2 PCR Nasal Parainfluen 3 PCR Nasal Parainfluen 4 PCR Nasal RSV (PCR) Nasal Screen MRSA (PCR) (NEGATIVE) Nasal B.pertussis DNA PCR Nasal C.pneumoniae (PCR) Sudeep Human Metapneumo PCR Nasal M.pneumoniae (PCR) Nasal SARS-CoV-2 (PCR) Serum Ketones (NEGATIVE) 08/23/22 08/23/22 08/23/22 Range/Units 09:25 08:46 07:44 WBC (4.8-10.8) x10^3/uL RBC (4.70-6.10) 10^6/uL Hgb (14.0-18.0) g/dL Hct (42.0-52.0) % MCV (80.0-94.0) fL MCH (27.0-31.0) pg MCHC (32.0-36.0) g/dL RDW (12.0-15.0) % Plt Count (130-450) 10^3/uL MPV (7.4-11.4) fL Neut # (Auto) (1.5-6.6) 10^3/uL Lymph # (Auto) (1.5-3.5) 10^3/uL [place] # (Auto) (0.0-1.0) 10^3/uL Eos # (Auto) (0.0-0.7) 10^3/uL Baso # (Auto) (0.0-0.1) 10^3/uL Absolute Nucleated RBC x10^3/uL Nucleated RBC % /100WBC VBG pH 7.344 (7.31-7.41) Ionized Calcium 1.13 L (1.15-1.33) mmol/L Sodium (135-145) mmol/L Potassium (3.5-5.0) mmol/L Chloride (101-111) mmol/L Carbon Dioxide (21-32) mmol/L Anion Gap BUN (6-20) mg/dL Creatinine (0.6-1.2) mg/dL Estimated GFR (MDRD) (>89) Glucose (70-100) mg/dL POC Whole Bld Glucose 167 H (70 - 100) mg/dL Estimat Average Glucose (70-100) mg/dL Hemoglobin A1c % (4.27-6.07) % Calcium (8.5-10.3) mg/dL Phosphorus (2.5-4.6) mg/dL Magnesium (1.7-2.8) mg/dL Triglycerides ( - 149) mg/dL Lipase (22-51) U/L Urine Color Urine Clarity (CLEAR) Urine pH (5.0-7.5) PH Ur Specific [place] (1.002-1.030) Urine Protein (NEGATIVE) mg/dL Urine Glucose (UA) (NEGATIVE) mg/dL Urine Ketones (NEGATIVE) mg/dL Urine Occult Blood (NEGATIVE) Urine Nitrite (NEGATIVE) Urine Bilirubin (NEGATIVE) Urine Urobilinogen (NORMAL) E.U./dL Ur Leukocyte Esterase (NEGATIVE) Urine RBC (0-5) /HPF Urine WBC (0-3) /HPF Ur Squamous Epith Cells (<= Few) Amorphous Sediment /LPF Urine Bacteria (None Seen) /HPF Ur Microscopic Review Urine Culture Comments Nasal Adenovirus (PCR) Nasal B. parapertussis DNA (PCR) Nasal Coronavir 229E PCR Nasal Coronavir HKU1 PCR Nasal Coronavir NL63 PCR Nasal Coronavir OC43 PCR Nasal Enterovir/Rhinovir PCR Nasal Influenza B PCR Nasal Influenza A PCR Nasal Parainfluen 1 PCR Nasal Parainfluen 2 PCR Nasal Parainfluen 3 PCR Nasal Parainfluen 4 PCR Nasal RSV (PCR) Nasal Screen MRSA (PCR) (NEGATIVE) Nasal B.pertussis DNA PCR Nasal C.pneumoniae (PCR) Sudeep Human Metapneumo PCR Nasal M.pneumoniae (PCR) Nasal SARS-CoV-2 (PCR) Serum Ketones SMALL H (NEGATIVE) 08/23/22 08/23/22 08/23/22 Range/Units 07:44 07:44 07:29 WBC (4.8-10.8) x10^3/uL RBC (4.70-6.10) 10^6/uL Hgb (14.0-18.0) g/dL Hct (42.0-52.0) % MCV (80.0-94.0) fL MCH (27.0-31.0) pg MCHC (32.0-36.0) g/dL RDW (12.0-15.0) % Plt Count (130-450) 10^3/uL MPV (7.4-11.4) fL Neut # (Auto) (1.5-6.6) 10^3/uL Lymph # (Auto) (1.5-3.5) 10^3/uL [place] # (Auto) (0.0-1.0) 10^3/uL Eos # (Auto) (0.0-0.7) 10^3/uL Baso # (Auto) (0.0-0.1) 10^3/uL Absolute Nucleated RBC x10^3/uL Nucleated RBC % /100WBC VBG pH (7.31-7.41) Ionized Calcium (1.15-1.33) mmol/L Sodium (135-145) mmol/L Potassium 3.3 L (3.5-5.0) mmol/L Chloride (101-111) mmol/L Carbon Dioxide (21-32) mmol/L Anion Gap BUN (6-20) mg/dL Creatinine (0.6-1.2) mg/dL Estimated GFR (MDRD) (>89) Glucose (70-100) mg/dL POC Whole Bld Glucose 152 H (70 - 100) mg/dL Estimat Average Glucose (70-100) mg/dL Hemoglobin A1c % (4.27-6.07) % Calcium (8.5-10.3) mg/dL Phosphorus (2.5-4.6) mg/dL Magnesium (1.7-2.8) mg/dL Triglycerides ( - 149) mg/dL Lipase (22-51) U/L Urine Color Urine Clarity (CLEAR) Urine pH (5.0-7.5) PH Ur Specific [place] (1.002-1.030) Urine Protein (NEGATIVE) mg/dL Urine Glucose (UA) (NEGATIVE) mg/dL Urine Ketones (NEGATIVE) mg/dL Urine Occult Blood (NEGATIVE) Urine Nitrite (NEGATIVE) Urine Bilirubin (NEGATIVE) Urine Urobilinogen (NORMAL) E.U./dL Ur Leukocyte Esterase (NEGATIVE) Urine RBC (0-5) /HPF Urine WBC (0-3) /HPF Ur Squamous Epith Cells (<= Few) Amorphous Sediment /LPF Urine Bacteria (None Seen) /HPF Ur Microscopic Review Urine Culture Comments Nasal Adenovirus (PCR) Nasal B. parapertussis DNA (PCR) Nasal Coronavir 229E PCR Nasal Coronavir HKU1 PCR Nasal Coronavir NL63 PCR Nasal Coronavir OC43 PCR Nasal Enterovir/Rhinovir PCR Nasal Influenza B PCR Nasal Influenza A PCR Nasal Parainfluen 1 PCR Nasal Parainfluen 2 PCR Nasal Parainfluen 3 PCR Nasal Parainfluen 4 PCR Nasal RSV (PCR) Nasal Screen MRSA (PCR) (NEGATIVE) Nasal B.pertussis DNA PCR Nasal C.pneumoniae (PCR) Sudeep Human Metapneumo PCR Nasal M.pneumoniae (PCR) Nasal SARS-CoV-2 (PCR) Serum Ketones SMALL H (NEGATIVE) 08/23/22 08/23/22 08/23/22 Range/Units 06:42 04:26 04:25 WBC (4.8-10.8) x10^3/uL RBC (4.70-6.10) 10^6/uL Hgb (14.0-18.0) g/dL Hct (42.0-52.0) % MCV (80.0-94.0) fL MCH (27.0-31.0) pg MCHC (32.0-36.0) g/dL RDW (12.0-15.0) % Plt Count (130-450) 10^3/uL MPV (7.4-11.4) fL Neut # (Auto) (1.5-6.6) 10^3/uL Lymph # (Auto) (1.5-3.5) 10^3/uL [place] # (Auto) (0.0-1.0) 10^3/uL Eos # (Auto) (0.0-0.7) 10^3/uL Baso # (Auto) (0.0-0.1) 10^3/uL Absolute Nucleated RBC x10^3/uL Nucleated RBC % /100WBC VBG pH (7.31-7.41) Ionized Calcium (1.15-1.33) mmol/L Sodium (135-145) mmol/L Potassium (3.5-5.0) mmol/L Chloride (101-111) mmol/L Carbon Dioxide (21-32) mmol/L Anion Gap BUN (6-20) mg/dL Creatinine (0.6-1.2) mg/dL Estimated GFR (MDRD) (>89) Glucose (70-100) mg/dL POC Whole Bld Glucose 131 H 153 H (70 - 100) mg/dL Estimat Average Glucose (70-100) mg/dL Hemoglobin A1c % (4.27-6.07) % Calcium (8.5-10.3) mg/dL Phosphorus (2.5-4.6) mg/dL Magnesium 1.9 (1.7-2.8) mg/dL Triglycerides ( - 149) mg/dL Lipase (22-51) U/L Urine Color Urine Clarity (CLEAR) Urine pH (5.0-7.5) PH Ur Specific [place] (1.002-1.030) Urine Protein (NEGATIVE) mg/dL Urine Glucose (UA) (NEGATIVE) mg/dL Urine Ketones (NEGATIVE) mg/dL Urine Occult Blood (NEGATIVE) Urine Nitrite (NEGATIVE) Urine Bilirubin (NEGATIVE) Urine Urobilinogen (NORMAL) E.U./dL Ur Leukocyte Esterase (NEGATIVE) Urine RBC (0-5) /HPF Urine WBC (0-3) /HPF Ur Squamous Epith Cells (<= Few) Amorphous Sediment /LPF Urine Bacteria (None Seen) /HPF Ur Microscopic Review Urine Culture Comments Nasal Adenovirus (PCR) Nasal B. parapertussis DNA (PCR) Nasal Coronavir 229E PCR Nasal Coronavir HKU1 PCR Nasal Coronavir NL63 PCR Nasal Coronavir OC43 PCR Nasal Enterovir/Rhinovir PCR Nasal Influenza B PCR Nasal Influenza A PCR Nasal Parainfluen 1 PCR Nasal Parainfluen 2 PCR Nasal Parainfluen 3 PCR Nasal Parainfluen 4 PCR Nasal RSV (PCR) Nasal Screen MRSA (PCR) (NEGATIVE) Nasal B.pertussis DNA PCR Nasal C.pneumoniae (PCR) Sudeep Human Metapneumo PCR Nasal M.pneumoniae (PCR) Nasal SARS-CoV-2 (PCR) Serum Ketones (NEGATIVE) 08/23/22 08/23/22 08/23/22 Range/Units 04:25 04:25 04:25 WBC (4.8-10.8) x10^3/uL RBC (4.70-6.10) 10^6/uL Hgb (14.0-18.0) g/dL Hct (42.0-52.0) % MCV (80.0-94.0) fL MCH (27.0-31.0) pg MCHC (32.0-36.0) g/dL RDW (12.0-15.0) % Plt Count (130-450) 10^3/uL MPV (7.4-11.4) fL Neut # (Auto) (1.5-6.6) 10^3/uL Lymph # (Auto) (1.5-3.5) 10^3/uL [place] # (Auto) (0.0-1.0) 10^3/uL Eos # (Auto) (0.0-0.7) 10^3/uL Baso # (Auto) (0.0-0.1) 10^3/uL Absolute Nucleated RBC x10^3/uL Nucleated RBC % /100WBC VBG pH 7.342 (7.31-7.41) Ionized Calcium 1.08 L (1.15-1.33) mmol/L Sodium (135-145) mmol/L Potassium (3.5-5.0) mmol/L Chloride (101-111) mmol/L Carbon Dioxide (21-32) mmol/L Anion Gap BUN (6-20) mg/dL Creatinine (0.6-1.2) mg/dL Estimated GFR (MDRD) (>89) Glucose (70-100) mg/dL POC Whole Bld Glucose (70 - 100) mg/dL Estimat Average Glucose 235 H (70-100) mg/dL Hemoglobin A1c % 9.8 H (4.27-6.07) % Calcium (8.5-10.3) mg/dL Phosphorus (2.5-4.6) mg/dL Magnesium (1.7-2.8) mg/dL Triglycerides ( - 149) mg/dL Lipase (22-51) U/L Urine Color Urine Clarity (CLEAR) Urine pH (5.0-7.5) PH Ur Specific [place] (1.002-1.030) Urine Protein (NEGATIVE) mg/dL Urine Glucose (UA) (NEGATIVE) mg/dL Urine Ketones (NEGATIVE) mg/dL Urine Occult Blood (NEGATIVE) Urine Nitrite (NEGATIVE) Urine Bilirubin (NEGATIVE) Urine Urobilinogen (NORMAL) E.U./dL Ur Leukocyte Esterase (NEGATIVE) Urine RBC (0-5) /HPF Urine WBC (0-3) /HPF Ur Squamous Epith Cells (<= Few) Amorphous Sediment /LPF Urine Bacteria (None Seen) /HPF Ur Microscopic Review Urine Culture Comments Nasal Adenovirus (PCR) Nasal B. parapertussis DNA (PCR) Nasal Coronavir 229E PCR Nasal Coronavir HKU1 PCR Nasal Coronavir NL63 PCR Nasal Coronavir OC43 PCR Nasal Enterovir/Rhinovir PCR Nasal Influenza B PCR Nasal Influenza A PCR Nasal Parainfluen 1 PCR Nasal Parainfluen 2 PCR Nasal Parainfluen 3 PCR Nasal Parainfluen 4 PCR Nasal RSV (PCR) Nasal Screen MRSA (PCR) (NEGATIVE) Nasal B.pertussis DNA PCR Nasal C.pneumoniae (PCR) Sudeep Human Metapneumo PCR Nasal M.pneumoniae (PCR) Nasal SARS-CoV-2 (PCR) Serum Ketones SMALL H (NEGATIVE) 08/23/22 08/23/22 08/23/22 Range/Units 04:25 04:25 02:08 WBC 16.3 H (4.8-10.8) x10^3/uL RBC 4.18 L (4.70-6.10) 10^6/uL Hgb 12.9 L (14.0-18.0) g/dL Hct 37.8 L (42.0-52.0) % MCV 90.4 (80.0-94.0) fL MCH 30.9 (27.0-31.0) pg MCHC 34.1 (32.0-36.0) g/dL RDW 13.0 (12.0-15.0) % Plt Count 233 (130-450) 10^3/uL MPV 10.4 (7.4-11.4) fL Neut # (Auto) 13.7 H (1.5-6.6) 10^3/uL Lymph # (Auto) 1.2 L (1.5-3.5) 10^3/uL [place] # (Auto) 1.3 H (0.0-1.0) 10^3/uL Eos # (Auto) 0.0 (0.0-0.7) 10^3/uL Baso # (Auto) 0.0 (0.0-0.1) 10^3/uL Absolute Nucleated RBC 0.00 x10^3/uL Nucleated RBC % 0.0 /100WBC VBG pH (7.31-7.41) Ionized Calcium (1.15-1.33) mmol/L Sodium 137 (135-145) mmol/L Potassium 3.2 L (3.5-5.0) mmol/L Chloride 112 H (101-111) mmol/L Carbon Dioxide 12 L* (21-32) mmol/L Anion Gap 13.0 BUN 8 (6-20) mg/dL Creatinine 1.1 (0.6-1.2) mg/dL Estimated GFR (MDRD) 82 L (>89) Glucose 143 H (70-100) mg/dL POC Whole Bld Glucose 178 H (70 - 100) mg/dL Estimat Average Glucose (70-100) mg/dL Hemoglobin A1c % (4.27-6.07) % Calcium 7.6 L (8.5-10.3) mg/dL Phosphorus 1.9 L (2.5-4.6) mg/dL Magnesium (1.7-2.8) mg/dL Triglycerides 230 H ( - 149) mg/dL Lipase 636 H (22-51) U/L Urine Color Urine Clarity (CLEAR) Urine pH (5.0-7.5) PH Ur Specific [place] (1.002-1.030) Urine Protein (NEGATIVE) mg/dL Urine Glucose (UA) (NEGATIVE) mg/dL Urine Ketones (NEGATIVE) mg/dL Urine Occult Blood (NEGATIVE) Urine Nitrite (NEGATIVE) Urine Bilirubin (NEGATIVE) Urine Urobilinogen (NORMAL) E.U./dL Ur Leukocyte Esterase (NEGATIVE) Urine RBC (0-5) /HPF Urine WBC (0-3) /HPF Ur Squamous Epith Cells (<= Few) Amorphous Sediment /LPF Urine Bacteria (None Seen) /HPF Ur Microscopic Review Urine Culture Comments Nasal Adenovirus (PCR) Nasal B. parapertussis DNA (PCR) Nasal Coronavir 229E PCR Nasal Coronavir HKU1 PCR Nasal Coronavir NL63 PCR Nasal Coronavir OC43 PCR Nasal Enterovir/Rhinovir PCR Nasal Influenza B PCR Nasal Influenza A PCR Nasal Parainfluen 1 PCR Nasal Parainfluen 2 PCR Nasal Parainfluen 3 PCR Nasal Parainfluen 4 PCR Nasal RSV (PCR) Nasal Screen MRSA (PCR) (NEGATIVE) Nasal B.pertussis DNA PCR Nasal C.pneumoniae (PCR) Sudeep Human Metapneumo PCR Nasal M.pneumoniae (PCR) Nasal SARS-CoV-2 (PCR) Serum Ketones (NEGATIVE) 08/23/22 08/23/22 08/23/22 Range/Units 01:20 01:11 00:11 WBC (4.8-10.8) x10^3/uL RBC (4.70-6.10) 10^6/uL Hgb (14.0-18.0) g/dL Hct (42.0-52.0) % MCV (80.0-94.0) fL MCH (27.0-31.0) pg MCHC (32.0-36.0) g/dL RDW (12.0-15.0) % Plt Count (130-450) 10^3/uL MPV (7.4-11.4) fL Neut # (Auto) (1.5-6.6) 10^3/uL Lymph # (Auto) (1.5-3.5) 10^3/uL [place] # (Auto) (0.0-1.0) 10^3/uL Eos # (Auto) (0.0-0.7) 10^3/uL Baso # (Auto) (0.0-0.1) 10^3/uL Absolute Nucleated RBC x10^3/uL Nucleated RBC % /100WBC VBG pH (7.31-7.41) Ionized Calcium (1.15-1.33) mmol/L Sodium (135-145) mmol/L Potassium (3.5-5.0) mmol/L Chloride (101-111) mmol/L Carbon Dioxide (21-32) mmol/L Anion Gap BUN (6-20) mg/dL Creatinine (0.6-1.2) mg/dL Estimated GFR (MDRD) (>89) Glucose (70-100) mg/dL POC Whole Bld Glucose 176 H 195 H (70 - 100) mg/dL Estimat Average Glucose (70-100) mg/dL Hemoglobin A1c % (4.27-6.07) % Calcium (8.5-10.3) mg/dL Phosphorus (2.5-4.6) mg/dL Magnesium (1.7-2.8) mg/dL Triglycerides ( - 149) mg/dL Lipase (22-51) U/L Urine Color Urine Clarity (CLEAR) Urine pH (5.0-7.5) PH Ur Specific [place] (1.002-1.030) Urine Protein (NEGATIVE) mg/dL Urine Glucose (UA) (NEGATIVE) mg/dL Urine Ketones (NEGATIVE) mg/dL Urine Occult Blood (NEGATIVE) Urine Nitrite (NEGATIVE) Urine Bilirubin (NEGATIVE) Urine Urobilinogen (NORMAL) E.U./dL Ur Leukocyte Esterase (NEGATIVE) Urine RBC (0-5) /HPF Urine WBC (0-3) /HPF Ur Squamous Epith Cells (<= Few) Amorphous Sediment /LPF Urine Bacteria (None Seen) /HPF Ur Microscopic Review Urine Culture Comments Nasal Adenovirus (PCR) Nasal B. parapertussis DNA (PCR) Nasal Coronavir 229E PCR Nasal Coronavir HKU1 PCR Nasal Coronavir NL63 PCR Nasal Coronavir OC43 PCR Nasal Enterovir/Rhinovir PCR Nasal Influenza B PCR Nasal Influenza A PCR Nasal Parainfluen 1 PCR Nasal Parainfluen 2 PCR Nasal Parainfluen 3 PCR Nasal Parainfluen 4 PCR Nasal RSV (PCR) Nasal Screen MRSA (PCR) (NEGATIVE) Nasal B.pertussis DNA PCR Nasal C.pneumoniae (PCR) Sudeep Human Metapneumo PCR Nasal M.pneumoniae (PCR) Nasal SARS-CoV-2 (PCR) Serum Ketones MODERATE H (NEGATIVE) 08/22/22 08/22/22 08/22/22 Range/Units 23:16 22:08 22:08 WBC (4.8-10.8) x10^3/uL RBC (4.70-6.10) 10^6/uL Hgb (14.0-18.0) g/dL Hct (42.0-52.0) % MCV (80.0-94.0) fL MCH (27.0-31.0) pg MCHC (32.0-36.0) g/dL RDW (12.0-15.0) % Plt Count (130-450) 10^3/uL MPV (7.4-11.4) fL Neut # (Auto) (1.5-6.6) 10^3/uL Lymph # (Auto) (1.5-3.5) 10^3/uL [place] # (Auto) (0.0-1.0) 10^3/uL Eos # (Auto) (0.0-0.7) 10^3/uL Baso # (Auto) (0.0-0.1) 10^3/uL Absolute Nucleated RBC x10^3/uL Nucleated RBC % /100WBC VBG pH 7.022 L (7.31-7.41) Ionized Calcium 1.12 L (1.15-1.33) mmol/L Sodium (135-145) mmol/L Potassium (3.5-5.0) mmol/L Chloride (101-111) mmol/L Carbon Dioxide (21-32) mmol/L Anion Gap BUN (6-20) mg/dL Creatinine (0.6-1.2) mg/dL Estimated GFR (MDRD) (>89) Glucose (70-100) mg/dL POC Whole Bld Glucose 244 H 267 H (70 - 100) mg/dL Estimat Average Glucose (70-100) mg/dL Hemoglobin A1c % (4.27-6.07) % Calcium (8.5-10.3) mg/dL Phosphorus (2.5-4.6) mg/dL Magnesium (1.7-2.8) mg/dL Triglycerides ( - 149) mg/dL Lipase (22-51) U/L Urine Color Urine Clarity (CLEAR) Urine pH (5.0-7.5) PH Ur Specific [place] (1.002-1.030) Urine Protein (NEGATIVE) mg/dL Urine Glucose (UA) (NEGATIVE) mg/dL Urine Ketones (NEGATIVE) mg/dL Urine Occult Blood (NEGATIVE) Urine Nitrite (NEGATIVE) Urine Bilirubin (NEGATIVE) Urine Urobilinogen (NORMAL) E.U./dL Ur Leukocyte Esterase (NEGATIVE) Urine RBC (0-5) /HPF Urine WBC (0-3) /HPF Ur Squamous Epith Cells (<= Few) Amorphous Sediment /LPF Urine Bacteria (None Seen) /HPF Ur Microscopic Review Urine Culture Comments Nasal Adenovirus (PCR) Nasal B. parapertussis DNA (PCR) Nasal Coronavir 229E PCR Nasal Coronavir HKU1 PCR Nasal Coronavir NL63 PCR Nasal Coronavir OC43 PCR Nasal Enterovir/Rhinovir PCR Nasal Influenza B PCR Nasal Influenza A PCR Nasal Parainfluen 1 PCR Nasal Parainfluen 2 PCR Nasal Parainfluen 3 PCR Nasal Parainfluen 4 PCR Nasal RSV (PCR) Nasal Screen MRSA (PCR) (NEGATIVE) Nasal B.pertussis DNA PCR Nasal C.pneumoniae (PCR) Sudeep Human Metapneumo PCR Nasal M.pneumoniae (PCR) Nasal SARS-CoV-2 (PCR) Serum Ketones (NEGATIVE) 08/22/22 08/22/22 08/22/22 Range/Units 22:08 22:08 20:55 WBC (4.8-10.8) x10^3/uL RBC (4.70-6.10) 10^6/uL Hgb (14.0-18.0) g/dL Hct (42.0-52.0) % MCV (80.0-94.0) fL MCH (27.0-31.0) pg MCHC (32.0-36.0) g/dL RDW (12.0-15.0) % Plt Count (130-450) 10^3/uL MPV (7.4-11.4) fL Neut # (Auto) (1.5-6.6) 10^3/uL Lymph # (Auto) (1.5-3.5) 10^3/uL [place] # (Auto) (0.0-1.0) 10^3/uL Eos # (Auto) (0.0-0.7) 10^3/uL Baso # (Auto) (0.0-0.1) 10^3/uL Absolute Nucleated RBC x10^3/uL Nucleated RBC % /100WBC VBG pH (7.31-7.41) Ionized Calcium (1.15-1.33) mmol/L Sodium (135-145) mmol/L Potassium 4.6 (3.5-5.0) mmol/L Chloride (101-111) mmol/L Carbon Dioxide (21-32) mmol/L Anion Gap BUN (6-20) mg/dL Creatinine (0.6-1.2) mg/dL Estimated GFR (MDRD) (>89) Glucose (70-100) mg/dL POC Whole Bld Glucose 237 H (70 - 100) mg/dL Estimat Average Glucose (70-100) mg/dL Hemoglobin A1c % (4.27-6.07) % Calcium (8.5-10.3) mg/dL Phosphorus 3.3 (2.5-4.6) mg/dL Magnesium 2.0 (1.7-2.8) mg/dL Triglycerides ( - 149) mg/dL Lipase (22-51) U/L Urine Color Urine Clarity (CLEAR) Urine pH (5.0-7.5) PH Ur Specific [place] (1.002-1.030) Urine Protein (NEGATIVE) mg/dL Urine Glucose (UA) (NEGATIVE) mg/dL Urine Ketones (NEGATIVE) mg/dL Urine Occult Blood (NEGATIVE) Urine Nitrite (NEGATIVE) Urine Bilirubin (NEGATIVE) Urine Urobilinogen (NORMAL) E.U./dL Ur Leukocyte Esterase (NEGATIVE) Urine RBC (0-5) /HPF Urine WBC (0-3) /HPF Ur Squamous Epith Cells (<= Few) Amorphous Sediment /LPF Urine Bacteria (None Seen) /HPF Ur Microscopic Review Urine Culture Comments Nasal Adenovirus (PCR) Nasal B. parapertussis DNA (PCR) Nasal Coronavir 229E PCR Nasal Coronavir HKU1 PCR Nasal Coronavir NL63 PCR Nasal Coronavir OC43 PCR Nasal Enterovir/Rhinovir PCR Nasal Influenza B PCR Nasal Influenza A PCR Nasal Parainfluen 1 PCR Nasal Parainfluen 2 PCR Nasal Parainfluen 3 PCR Nasal Parainfluen 4 PCR Nasal RSV (PCR) Nasal Screen MRSA (PCR) (NEGATIVE) Nasal B.pertussis DNA PCR Nasal C.pneumoniae (PCR) Sudeep Human Metapneumo PCR Nasal M.pneumoniae (PCR) Nasal SARS-CoV-2 (PCR) Serum Ketones MODERATE H (NEGATIVE) 08/22/22 08/22/22 08/22/22 Range/Units 20:04 19:38 18:58 WBC (4.8-10.8) x10^3/uL RBC (4.70-6.10) 10^6/uL Hgb (14.0-18.0) g/dL Hct (42.0-52.0) % MCV (80.0-94.0) fL MCH (27.0-31.0) pg MCHC (32.0-36.0) g/dL RDW (12.0-15.0) % Plt Count (130-450) 10^3/uL MPV (7.4-11.4) fL Neut # (Auto) (1.5-6.6) 10^3/uL Lymph # (Auto) (1.5-3.5) 10^3/uL [place] # (Auto) (0.0-1.0) 10^3/uL Eos # (Auto) (0.0-0.7) 10^3/uL Baso # (Auto) (0.0-0.1) 10^3/uL Absolute Nucleated RBC x10^3/uL Nucleated RBC % /100WBC VBG pH (7.31-7.41) Ionized Calcium (1.15-1.33) mmol/L Sodium (135-145) mmol/L Potassium (3.5-5.0) mmol/L Chloride (101-111) mmol/L Carbon Dioxide (21-32) mmol/L Anion Gap BUN (6-20) mg/dL Creatinine (0.6-1.2) mg/dL Estimated GFR (MDRD) (>89) Glucose (70-100) mg/dL POC Whole Bld Glucose 109 H 90 91 (70 - 100) mg/dL Estimat Average Glucose (70-100) mg/dL Hemoglobin A1c % (4.27-6.07) % Calcium (8.5-10.3) mg/dL Phosphorus (2.5-4.6) mg/dL Magnesium (1.7-2.8) mg/dL Triglycerides ( - 149) mg/dL Lipase (22-51) U/L Urine Color Urine Clarity (CLEAR) Urine pH (5.0-7.5) PH Ur Specific [place] (1.002-1.030) Urine Protein (NEGATIVE) mg/dL Urine Glucose (UA) (NEGATIVE) mg/dL Urine Ketones (NEGATIVE) mg/dL Urine Occult Blood (NEGATIVE) Urine Nitrite (NEGATIVE) Urine Bilirubin (NEGATIVE) Urine Urobilinogen (NORMAL) E.U./dL Ur Leukocyte Esterase (NEGATIVE) Urine RBC (0-5) /HPF Urine WBC (0-3) /HPF Ur Squamous Epith Cells (<= Few) Amorphous Sediment /LPF Urine Bacteria (None Seen) /HPF Ur Microscopic Review Urine Culture Comments Nasal Adenovirus (PCR) Nasal B. parapertussis DNA (PCR) Nasal Coronavir 229E PCR Nasal Coronavir HKU1 PCR Nasal Coronavir NL63 PCR Nasal Coronavir OC43 PCR Nasal Enterovir/Rhinovir PCR Nasal Influenza B PCR Nasal Influenza A PCR Nasal Parainfluen 1 PCR Nasal Parainfluen 2 PCR Nasal Parainfluen 3 PCR Nasal Parainfluen 4 PCR Nasal RSV (PCR) Nasal Screen MRSA (PCR) (NEGATIVE) Nasal B.pertussis DNA PCR Nasal C.pneumoniae (PCR) Sudeep Human Metapneumo PCR Nasal M.pneumoniae (PCR) Nasal SARS-CoV-2 (PCR) Serum Ketones (NEGATIVE) 08/22/22 08/22/22 08/22/22 Range/Units 18:15 18:02 16:57 WBC (4.8-10.8) x10^3/uL RBC (4.70-6.10) 10^6/uL Hgb (14.0-18.0) g/dL Hct (42.0-52.0) % MCV (80.0-94.0) fL MCH (27.0-31.0) pg MCHC (32.0-36.0) g/dL RDW (12.0-15.0) % Plt Count (130-450) 10^3/uL MPV (7.4-11.4) fL Neut # (Auto) (1.5-6.6) 10^3/uL Lymph # (Auto) (1.5-3.5) 10^3/uL [place] # (Auto) (0.0-1.0) 10^3/uL Eos # (Auto) (0.0-0.7) 10^3/uL Baso # (Auto) (0.0-0.1) 10^3/uL Absolute Nucleated RBC x10^3/uL Nucleated RBC % /100WBC VBG pH (7.31-7.41) Ionized Calcium (1.15-1.33) mmol/L Sodium (135-145) mmol/L Potassium (3.5-5.0) mmol/L Chloride (101-111) mmol/L Carbon Dioxide (21-32) mmol/L Anion Gap BUN (6-20) mg/dL Creatinine (0.6-1.2) mg/dL Estimated GFR (MDRD) (>89) Glucose 117 H (70-100) mg/dL POC Whole Bld Glucose 103 H 109 H (70 - 100) mg/dL Estimat Average Glucose (70-100) mg/dL Hemoglobin A1c % (4.27-6.07) % Calcium (8.5-10.3) mg/dL Phosphorus (2.5-4.6) mg/dL Magnesium (1.7-2.8) mg/dL Triglycerides ( - 149) mg/dL Lipase (22-51) U/L Urine Color Urine Clarity (CLEAR) Urine pH (5.0-7.5) PH Ur Specific [place] (1.002-1.030) Urine Protein (NEGATIVE) mg/dL Urine Glucose (UA) (NEGATIVE) mg/dL Urine Ketones (NEGATIVE) mg/dL Urine Occult Blood (NEGATIVE) Urine Nitrite (NEGATIVE) Urine Bilirubin (NEGATIVE) Urine Urobilinogen (NORMAL) E.U./dL Ur Leukocyte Esterase (NEGATIVE) Urine RBC (0-5) /HPF Urine WBC (0-3) /HPF Ur Squamous Epith Cells (<= Few) Amorphous Sediment /LPF Urine Bacteria (None Seen) /HPF Ur Microscopic Review Urine Culture Comments Nasal Adenovirus (PCR) Nasal B. parapertussis DNA (PCR) Nasal Coronavir 229E PCR Nasal Coronavir HKU1 PCR Nasal Coronavir NL63 PCR Nasal Coronavir OC43 PCR Nasal Enterovir/Rhinovir PCR Nasal Influenza B PCR Nasal Influenza A PCR Nasal Parainfluen 1 PCR Nasal Parainfluen 2 PCR Nasal Parainfluen 3 PCR Nasal Parainfluen 4 PCR Nasal RSV (PCR) Nasal Screen MRSA (PCR) (NEGATIVE) Nasal B.pertussis DNA PCR Nasal C.pneumoniae (PCR) Sudeep Human Metapneumo PCR Nasal M.pneumoniae (PCR) Nasal SARS-CoV-2 (PCR) Serum Ketones MODERATE H (NEGATIVE) 08/22/22 08/22/22 08/22/22 Range/Units 16:14 16:02 15:01 WBC (4.8-10.8) x10^3/uL RBC (4.70-6.10) 10^6/uL Hgb (14.0-18.0) g/dL Hct (42.0-52.0) % MCV (80.0-94.0) fL MCH (27.0-31.0) pg MCHC (32.0-36.0) g/dL RDW (12.0-15.0) % Plt Count (130-450) 10^3/uL MPV (7.4-11.4) fL Neut # (Auto) (1.5-6.6) 10^3/uL Lymph # (Auto) (1.5-3.5) 10^3/uL [place] # (Auto) (0.0-1.0) 10^3/uL Eos # (Auto) (0.0-0.7) 10^3/uL Baso # (Auto) (0.0-0.1) 10^3/uL Absolute Nucleated RBC x10^3/uL Nucleated RBC % /100WBC VBG pH (7.31-7.41) Ionized Calcium (1.15-1.33) mmol/L Sodium 143 (135-145) mmol/L Potassium 4.9 (3.5-5.0) mmol/L Chloride 114 H (101-111) mmol/L Carbon Dioxide 6 L* (21-32) mmol/L Anion Gap 23.0 H BUN 15 (6-20) mg/dL Creatinine 1.4 H (0.6-1.2) mg/dL Estimated GFR (MDRD) 62 L (>89) Glucose 197 H (70-100) mg/dL POC Whole Bld Glucose 198 H 220 H (70 - 100) mg/dL Estimat Average Glucose (70-100) mg/dL Hemoglobin A1c % (4.27-6.07) % Calcium 8.0 L (8.5-10.3) mg/dL Phosphorus (2.5-4.6) mg/dL Magnesium 2.3 (1.7-2.8) mg/dL Triglycerides ( - 149) mg/dL Lipase (22-51) U/L Urine Color Urine Clarity (CLEAR) Urine pH (5.0-7.5) PH Ur Specific [place] (1.002-1.030) Urine Protein (NEGATIVE) mg/dL Urine Glucose (UA) (NEGATIVE) mg/dL Urine Ketones (NEGATIVE) mg/dL Urine Occult Blood (NEGATIVE) Urine Nitrite (NEGATIVE) Urine Bilirubin (NEGATIVE) Urine Urobilinogen (NORMAL) E.U./dL Ur Leukocyte Esterase (NEGATIVE) Urine RBC (0-5) /HPF Urine WBC (0-3) /HPF Ur Squamous Epith Cells (<= Few) Amorphous Sediment /LPF Urine Bacteria (None Seen) /HPF Ur Microscopic Review Urine Culture Comments Nasal Adenovirus (PCR) Nasal B. parapertussis DNA (PCR) Nasal Coronavir 229E PCR Nasal Coronavir HKU1 PCR Nasal Coronavir NL63 PCR Nasal Coronavir OC43 PCR Nasal Enterovir/Rhinovir PCR Nasal Influenza B PCR Nasal Influenza A PCR Nasal Parainfluen 1 PCR Nasal Parainfluen 2 PCR Nasal Parainfluen 3 PCR Nasal Parainfluen 4 PCR Nasal RSV (PCR) Nasal Screen MRSA (PCR) (NEGATIVE) Nasal B.pertussis DNA PCR Nasal C.pneumoniae (PCR) Sudeep Human Metapneumo PCR Nasal M.pneumoniae (PCR) Nasal SARS-CoV-2 (PCR) Serum Ketones MODERATE H (NEGATIVE) 08/22/22 08/22/22 08/22/22 Range/Units 14:15 14:10 13:54 WBC (4.8-10.8) x10^3/uL RBC (4.70-6.10) 10^6/uL Hgb (14.0-18.0) g/dL Hct (42.0-52.0) % MCV (80.0-94.0) fL MCH (27.0-31.0) pg MCHC (32.0-36.0) g/dL RDW (12.0-15.0) % Plt Count (130-450) 10^3/uL MPV (7.4-11.4) fL Neut # (Auto) (1.5-6.6) 10^3/uL Lymph # (Auto) (1.5-3.5) 10^3/uL [place] # (Auto) (0.0-1.0) 10^3/uL Eos # (Auto) (0.0-0.7) 10^3/uL Baso # (Auto) (0.0-0.1) 10^3/uL Absolute Nucleated RBC x10^3/uL Nucleated RBC % /100WBC VBG pH (7.31-7.41) Ionized Calcium (1.15-1.33) mmol/L Sodium 138 (135-145) mmol/L Potassium 5.8 H (3.5-5.0) mmol/L Chloride 112 H (101-111) mmol/L Carbon Dioxide < 6 L* (21-32) mmol/L Anion Gap 20.0 H BUN 16 (6-20) mg/dL Creatinine 1.3 H (0.6-1.2) mg/dL Estimated GFR (MDRD) 67 L (>89) Glucose 338 H (70-100) mg/dL POC Whole Bld Glucose 358 H (70 - 100) mg/dL Estimat Average Glucose (70-100) mg/dL Hemoglobin A1c % (4.27-6.07) % Calcium 8.0 L (8.5-10.3) mg/dL Phosphorus (2.5-4.6) mg/dL Magnesium 2.6 (1.7-2.8) mg/dL Triglycerides ( - 149) mg/dL Lipase (22-51) U/L Urine Color Urine Clarity (CLEAR) Urine pH (5.0-7.5) PH Ur Specific [place] (1.002-1.030) Urine Protein (NEGATIVE) mg/dL Urine Glucose (UA) (NEGATIVE) mg/dL Urine Ketones (NEGATIVE) mg/dL Urine Occult Blood (NEGATIVE) Urine Nitrite (NEGATIVE) Urine Bilirubin (NEGATIVE) Urine Urobilinogen (NORMAL) E.U./dL Ur Leukocyte Esterase (NEGATIVE) Urine RBC (0-5) /HPF Urine WBC (0-3) /HPF Ur Squamous Epith Cells (<= Few) Amorphous Sediment /LPF Urine Bacteria (None Seen) /HPF Ur Microscopic Review Urine Culture Comments Nasal Adenovirus (PCR) Nasal B. parapertussis DNA (PCR) Nasal Coronavir 229E PCR Nasal Coronavir HKU1 PCR Nasal Coronavir NL63 PCR Nasal Coronavir OC43 PCR Nasal Enterovir/Rhinovir PCR Nasal Influenza B PCR Nasal Influenza A PCR Nasal Parainfluen 1 PCR Nasal Parainfluen 2 PCR Nasal Parainfluen 3 PCR Nasal Parainfluen 4 PCR Nasal RSV (PCR) Nasal Screen MRSA (PCR) NEGATIVE (NEGATIVE) Nasal B.pertussis DNA PCR Nasal C.pneumoniae (PCR) Sudeep Human Metapneumo PCR Nasal M.pneumoniae (PCR) Nasal SARS-CoV-2 (PCR) Serum Ketones LARGE H (NEGATIVE) 08/22/22 08/22/22 Range/Units 13:38 12:50 WBC (4.8-10.8) x10^3/uL RBC (4.70-6.10) 10^6/uL Hgb (14.0-18.0) g/dL Hct (42.0-52.0) % MCV (80.0-94.0) fL MCH (27.0-31.0) pg MCHC (32.0-36.0) g/dL RDW (12.0-15.0) % Plt Count (130-450) 10^3/uL MPV (7.4-11.4) fL Neut # (Auto) (1.5-6.6) 10^3/uL Lymph # (Auto) (1.5-3.5) 10^3/uL [place] # (Auto) (0.0-1.0) 10^3/uL Eos # (Auto) (0.0-0.7) 10^3/uL Baso # (Auto) (0.0-0.1) 10^3/uL Absolute Nucleated RBC x10^3/uL Nucleated RBC % /100WBC VBG pH (7.31-7.41) Ionized Calcium (1.15-1.33) mmol/L Sodium 139 (135-145) mmol/L Potassium 5.7 H (3.5-5.0) mmol/L Chloride 111 (101-111) mmol/L Carbon Dioxide < 6 L* (21-32) mmol/L Anion Gap [employer] BUN 17 (6-20) mg/dL Creatinine 1.3 H (0.6-1.2) mg/dL Estimated GFR (MDRD) 67 L (>89) Glucose 397 H (70-100) mg/dL POC Whole Bld Glucose (70 - 100) mg/dL Estimat Average Glucose (70-100) mg/dL Hemoglobin A1c % (4.27-6.07) % Calcium 7.9 L (8.5-10.3) mg/dL Phosphorus (2.5-4.6) mg/dL Magnesium 2.6 (1.7-2.8) mg/dL Triglycerides ( - 149) mg/dL Lipase (22-51) U/L Urine Color Urine Clarity (CLEAR) Urine pH (5.0-7.5) PH Ur Specific [place] (1.002-1.030) Urine Protein (NEGATIVE) mg/dL Urine Glucose (UA) (NEGATIVE) mg/dL Urine Ketones (NEGATIVE) mg/dL Urine Occult Blood (NEGATIVE) Urine Nitrite (NEGATIVE) Urine Bilirubin (NEGATIVE) Urine Urobilinogen (NORMAL) E.U./dL Ur Leukocyte Esterase (NEGATIVE) Urine RBC (0-5) /HPF Urine WBC (0-3) /HPF Ur Squamous Epith Cells (<= Few) Amorphous Sediment /LPF Urine Bacteria (None Seen) /HPF Ur Microscopic Review Urine Culture Comments Nasal Adenovirus (PCR) NOT DETECTED Nasal B. parapertussis DNA (PCR) NOT DETECTED Nasal Coronavir 229E PCR NOT DETECTED Nasal Coronavir HKU1 PCR NOT DETECTED Nasal Coronavir NL63 PCR NOT DETECTED Nasal Coronavir OC43 PCR NOT DETECTED Nasal Enterovir/Rhinovir PCR NOT DETECTED Nasal Influenza B PCR NOT DETECTED Nasal Influenza A PCR NOT DETECTED Nasal Parainfluen 1 PCR NOT DETECTED Nasal Parainfluen 2 PCR NOT DETECTED Nasal Parainfluen 3 PCR NOT DETECTED Nasal Parainfluen 4 PCR NOT DETECTED Nasal RSV (PCR) NOT DETECTED Nasal Screen MRSA (PCR) (NEGATIVE) Nasal B.pertussis DNA PCR NOT DETECTED Nasal C.pneumoniae (PCR) NOT DETECTED Sudeep Human Metapneumo PCR NOT DETECTED Nasal M.pneumoniae (PCR) NOT DETECTED Nasal SARS-CoV-2 (PCR) NOT DETECTED Serum Ketones LARGE H (NEGATIVE) Assessment/Plan - Problem List (1) DKA, type 1 Impression: Details of how he started to get ill were not yet known in ER, as he was too lethargic to give a detailed history. I obtained Hx from mother. He did report to me the well water intake, which lead to vomiting. He was put on IV NS at 175 cc/hr and later added D5 iv when his glu dropped <200. He was given iv antiemetics and put on bowel rest at admission w/ NPO diet order except sips and ice chips. His Large ketones are down to small ketones on a.m. labs (all labs were reviewed). His A1c came back at 9.8 indicating poor glu control, and the mother had mentioned by phone yesterday that he checks his glu not frequently enough. Plan: Remain in the ICU, continue DKA protocol, with Insulin drip to continue until se rum ketones are neg. Continue close lab monitoring of his serum ketones, glucose levels, electrolytes Continue aggressive iv fluids Will stop iv Bicarb drip, since his pH is normal at 7.37 by a.m. labs today Jose ue prn IV antiemetics and continue NPO diet except ice chips and clear water sips. We will request a nutrition/DM consult as well, to give recommendations going forward If he develops diarrhea, will send stool for bacterial cultures, given the finding on CT abd/pelvis that was done today (see #3) I updated the mother at bedside today (she drove [place] from [place]) Qualifiers: Qualified Code(s): E10.11 - Type 1 diabetes mellitus with ketoacidosis with coma (2) Pancreatitis Due to N/V a Lipase level was checked and came back at 636 (labs were reviewed). I ordered a CT abd to evaluate the pancreas, and this showed inflammation of tail of pancreas. Plan: Continue with boiwel rest today, will start clear liquids tomorrw Follow serum Lipase level daily Given the pancreatitis without a Hx of alcoholism, or any gallstones on CT, will check a riglyceride level, which may have added to the pancreatitis. (3) Duodenitis CT abdomen also reported inflammation of the duodenum at the C loop. This may be inflammed from the neighboring panceas or possibly the bad tasting well water he drank caused this duodenal finding. Plan: Continue diet restriction as in #2 Continue stress ulcer meds for prophylaxis (4) Hypertriglyceridemia His labs did show a Trigl elevation of 230. His CT abd also reported focally fatty liver Plan: His poor glucose control is adding to these high Trigl since glu is stored as Triglycerides in the body. After a diet is eventually resumed, will discuss possible Fenofibrate use after Dch (5) ADHD Conclusion/Plan: According to his mother this patient has ADHD with depression but refuses to take any meds for this. Today he appears very anxious, on top of having tachypnea due to his metabolic acidosis. Plan: Continue prn iv Ativan to treat his anxiety (6) History of TIA (transient ischemic attack) Conclusion/Plan: If that was the final Dx, he should be on daily baby aspirin. Plan: The finalized med list from pharmacy does not show any ASA. I will check with his mother if any other meds are being ordered for him, or perhaps he takes OTC ASA Qualifiers: Qualified Code(s): E10.11 - Type 1 diabetes mellitus with ketoacidosis with coma
[2022-08-23 15:05] LABS: CALCIUM, IONIZED 1.13 mmol/L (1.15-1.33); VBG PH 7.424 (7.31-7.41)
[2022-08-23 15:20] LABS: MAGNESIUM 1.5 mg/dL (1.7-2.8); POTASSIUM 2.9 mmol/L (3.5-5.0)
[2022-08-23 15:25] LABS: PHOSPHORUS < 1.0 mg/dL (2.5-4.6)
[2022-08-23] MEDS ORDERED: MAGNESIUM SULFATE 2 GRAM 2 GM/50 ML BAG IV ONE (16:45)
[2022-08-23] MEDS: POTASSIUM PHOSPHATE 15 MMOL in SODIUM CHLORIDE 0.9% 250 ML IV SCH ×2 (17:24→21:48)
[2022-08-24] MEDS: INSULIN REGULAR IN 0.9 % NS 100 UNIT/100 ML BAG IV SCH ×2 (00:50→16:54)
[2022-08-24] MEDS: SODIUM CHLORIDE 0.9% 1,000 ML IV SCH ×6 (00:50→22:48)
[2022-08-24] MEDS: HYDROmorphone 0.5 MG/0.5 ML SYRINGE IVP PRN ×2 (01:08→08:57)
[2022-08-24 01:22] LABS: MAGNESIUM 1.9 mg/dL (1.7-2.8); POTASSIUM 3.2 mmol/L (3.5-5.0)
[2022-08-24] MEDS: POTASSIUM CHLOR 10 MEQ/100 ML 10 MEQ/100 ML BAG IV SCH ×10 (01:42→17:32)
[2022-08-24] MEDS: SODIUM CHLORIDE FLUSH 0.9% 10 ML SYRINGE IVP SCH ×3 (01:43→17:32)
[2022-08-24] MEDS: DEXTROSE 5% 1,000 ML IV SCH ×3 (02:46→14:49)
[2022-08-24] MEDS ORDERED: HYDROmorphone 0.5 MG/0.5 ML SYRINGE IVP ONE (03:00)
[2022-08-24 04:32] LABS: CALCIUM, IONIZED 1.13 mmol/L (1.15-1.33); VBG PH 7.431 (7.31-7.41)
[2022-08-24 04:38] LABS: KETONES, SERUM (ACETEST) SMALL (NEGATIVE)
[2022-08-24 04:57] LABS: BUN - BLOOD UREA NITROGEN < 5 mg/dL (6-20); CALCIUM 7.8 mg/dL (8.5-10.3); CARBON DIOXIDE - CO2 21 mmol/L (21-32); CHLORIDE 108 mmol/L (101-111); CREATININE 0.6 mg/dL (0.6-1.2); GFR - MDRD 164 (>89); GLUCOSE 138 mg/dL (70-100); LIPASE 636 U/L (22-51); MAGNESIUM 1.9 mg/dL (1.7-2.8); PHOSPHORUS 1.4 mg/dL (2.5-4.6); POTASSIUM 3.1 mmol/L (3.5-5.0); SODIUM 135 mmol/L (135-145); TRIGLYCERIDES 182 mg/dL
[2022-08-24] MEDS ORDERED: POTASSIUM PHOSPHATE 21 MMOL in SODIUM CHLORIDE 0.9% 250 ML IV ONE (08:00)
[2022-08-24] MEDS: FAMOTIDINE 20 MG/2 ML VIAL IVP SCH ×2 (08:58→20:30)
[2022-08-24] MEDS: oxyCODONE 5 MG TABLET PO PRN ×3 (12:52→20:30)
[2022-08-24 14:26] LABS: PHOSPHORUS 1.6 mg/dL (2.5-4.6); POTASSIUM 3.1 mmol/L (3.5-5.0)
[2022-08-24] MEDS ORDERED: POTASSIUM PHOSPHATE 15 MMOL in SODIUM CHLORIDE 0.9% 250 ML IV ONE (15:30)
--- NOTE | 2022-08-24 17:04 | PROVIDER PROGRESS NOTE ---
Subjective - Subjective Pt reports feeling: No change Subjective: He still has "discomfort" in the upper abdomen, he says. It is not tender or painful. He has no nausea vomiting and has an appetite Objective - Vital Signs/Intake & Output Vital Signs: Vital Signs Pulse Resp BP Pulse Ox 08/24/22 16:00 94 14 150/104 H 97 08/24/22 15:00 107 H 20 153/103 H 98 08/24/22 14:00 104 H 20 149/106 H 99 Intake & Output: Intake & Output 08/21/22 08/22/22 08/23/22 08/24/22 23:59 23:59 23:59 23:59 Intake Total 6034.238 8253.611 5459.760 Output Total 3885 3865 3325 Balance 2149.238 4388.611 2134.760 - Objective General Appearance: positive: No acute distress, Alert Eyes Bilateral: positive: Normal inspection, No lid inflammation ENT: positive: ENT inspection nml, No signs of dehydration Neck: positive: Nml inspection, No JVD Respiratory: positive: No respiratory distress, Breath sounds nml Cardiovascular: positive: Regular rate & rhythm, No murmur Abdomen: positive: Non-tender, Nml bowel sounds, No distention Skin: positive: Warm, Dry Extremities: positive: Non-tender, No pedal edema Neurologic/Psychiatric: positive: Oriented x3, Motor nml - Lab Results Fish Bones: 08/25/22 04:23 08/25/22 08:45 Other Labs: Lab Results x24hrs 08/24/22 08/24/22 08/24/22 Range/Units 16:33 15:34 14:31 VBG pH (7.31-7.41) Ionized Calcium (1.15-1.33) mmol/L Sodium (135-145) mmol/L Potassium (3.5-5.0) mmol/L Chloride (101-111) mmol/L Carbon Dioxide (21-32) mmol/L Anion Gap (6-13) BUN (6-20) mg/dL Creatinine (0.6-1.2) mg/dL Estimated GFR (MDRD) (>89) Glucose (70-100) mg/dL POC Whole Bld Glucose 155 H 116 H 124 H (70 - 100) mg/dL Calcium (8.5-10.3) mg/dL Phosphorus (2.5-4.6) mg/dL Magnesium (1.7-2.8) mg/dL Triglycerides ( - 149) mg/dL Lipase (22-51) U/L Serum Ketones (NEGATIVE) 08/24/22 08/24/22 08/24/22 Range/Units 14:07 13:39 12:50 VBG pH (7.31-7.41) Ionized Calcium (1.15-1.33) mmol/L Sodium (135-145) mmol/L Potassium 3.1 L (3.5-5.0) mmol/L Chloride (101-111) mmol/L Carbon Dioxide (21-32) mmol/L Anion Gap (6-13) BUN (6-20) mg/dL Creatinine (0.6-1.2) mg/dL Estimated GFR (MDRD) (>89) Glucose (70-100) mg/dL POC Whole Bld Glucose 121 H 129 H (70 - 100) mg/dL Calcium (8.5-10.3) mg/dL Phosphorus 1.6 L (2.5-4.6) mg/dL Magnesium (1.7-2.8) mg/dL Triglycerides ( - 149) mg/dL Lipase (22-51) U/L Serum Ketones (NEGATIVE) 08/24/22 08/24/22 08/24/22 Range/Units 11:47 11:34 09:30 VBG pH (7.31-7.41) Ionized Calcium (1.15-1.33) mmol/L Sodium (135-145) mmol/L Potassium (3.5-5.0) mmol/L Chloride (101-111) mmol/L Carbon Dioxide (21-32) mmol/L Anion Gap (6-13) BUN (6-20) mg/dL Creatinine (0.6-1.2) mg/dL Estimated GFR (MDRD) (>89) Glucose (70-100) mg/dL POC Whole Bld Glucose 153 H 183 H (70 - 100) mg/dL Calcium (8.5-10.3) mg/dL Phosphorus (2.5-4.6) mg/dL Magnesium (1.7-2.8) mg/dL Triglycerides ( - 149) mg/dL Lipase (22-51) U/L Serum Ketones SMALL H (NEGATIVE) 08/24/22 08/24/22 08/24/22 Range/Units 08:37 07:27 06:57 VBG pH (7.31-7.41) Ionized Calcium (1.15-1.33) mmol/L Sodium (135-145) mmol/L Potassium 3.2 L (3.5-5.0) mmol/L Chloride (101-111) mmol/L Carbon Dioxide (21-32) mmol/L Anion Gap (6-13) BUN (6-20) mg/dL Creatinine (0.6-1.2) mg/dL Estimated GFR (MDRD) (>89) Glucose (70-100) mg/dL POC Whole Bld Glucose 172 H 203 H (70 - 100) mg/dL Calcium (8.5-10.3) mg/dL Phosphorus (2.5-4.6) mg/dL Magnesium (1.7-2.8) mg/dL Triglycerides ( - 149) mg/dL Lipase (22-51) U/L Serum Ketones (NEGATIVE) 08/24/22 08/24/22 08/24/22 Range/Units 05:57 04:55 04:04 VBG pH (7.31-7.41) Ionized Calcium (1.15-1.33) mmol/L Sodium (135-145) mmol/L Potassium (3.5-5.0) mmol/L Chloride (101-111) mmol/L Carbon Dioxide (21-32) mmol/L Anion Gap (6-13) BUN (6-20) mg/dL Creatinine (0.6-1.2) mg/dL Estimated GFR (MDRD) (>89) Glucose (70-100) mg/dL POC Whole Bld Glucose 197 H 122 H 142 H (70 - 100) mg/dL Calcium (8.5-10.3) mg/dL Phosphorus (2.5-4.6) mg/dL Magnesium (1.7-2.8) mg/dL Triglycerides ( - 149) mg/dL Lipase (22-51) U/L Serum Ketones (NEGATIVE) 08/24/22 08/24/22 08/24/22 Range/Units 04:04 04:04 02:52 VBG pH 7.431 H (7.31-7.41) Ionized Calcium 1.13 L (1.15-1.33) mmol/L Sodium 135 (135-145) mmol/L Potassium 3.1 L (3.5-5.0) mmol/L Chloride 108 (101-111) mmol/L Carbon Dioxide 21 (21-32) mmol/L Anion Gap 6.0 (6-13) BUN < 5 L (6-20) mg/dL Creatinine 0.6 (0.6-1.2) mg/dL Estimated GFR (MDRD) 164 (>89) Glucose 138 H (70-100) mg/dL POC Whole Bld Glucose 139 H (70 - 100) mg/dL Calcium 7.8 L (8.5-10.3) mg/dL Phosphorus 1.4 L (2.5-4.6) mg/dL Magnesium 1.9 (1.7-2.8) mg/dL Triglycerides 182 H ( - 149) mg/dL Lipase 636 H (22-51) U/L Serum Ketones SMALL H (NEGATIVE) 08/24/22 08/24/22 08/24/22 Range/Units 02:07 01:07 01:06 VBG pH (7.31-7.41) Ionized Calcium (1.15-1.33) mmol/L Sodium (135-145) mmol/L Potassium 3.2 L (3.5-5.0) mmol/L Chloride (101-111) mmol/L Carbon Dioxide (21-32) mmol/L Anion Gap (6-13) BUN (6-20) mg/dL Creatinine (0.6-1.2) mg/dL Estimated GFR (MDRD) (>89) Glucose (70-100) mg/dL POC Whole Bld Glucose 164 H 193 H (70 - 100) mg/dL Calcium (8.5-10.3) mg/dL Phosphorus (2.5-4.6) mg/dL Magnesium 1.9 (1.7-2.8) mg/dL Triglycerides ( - 149) mg/dL Lipase (22-51) U/L Serum Ketones (NEGATIVE) 08/23/22 08/23/22 08/23/22 Range/Units 23:37 22:26 21:35 VBG pH (7.31-7.41) Ionized Calcium (1.15-1.33) mmol/L Sodium (135-145) mmol/L Potassium (3.5-5.0) mmol/L Chloride (101-111) mmol/L Carbon Dioxide (21-32) mmol/L Anion Gap (6-13) BUN (6-20) mg/dL Creatinine (0.6-1.2) mg/dL Estimated GFR (MDRD) (>89) Glucose (70-100) mg/dL POC Whole Bld Glucose 175 H 191 H 219 H (70 - 100) mg/dL Calcium (8.5-10.3) mg/dL Phosphorus (2.5-4.6) mg/dL Magnesium (1.7-2.8) mg/dL Triglycerides ( - 149) mg/dL Lipase (22-51) U/L Serum Ketones (NEGATIVE) 08/23/22 08/23/22 08/23/22 Range/Units 21:11 20:16 18:59 VBG pH (7.31-7.41) Ionized Calcium (1.15-1.33) mmol/L Sodium (135-145) mmol/L Potassium (3.5-5.0) mmol/L Chloride (101-111) mmol/L Carbon Dioxide (21-32) mmol/L Anion Gap (6-13) BUN (6-20) mg/dL Creatinine (0.6-1.2) mg/dL Estimated GFR (MDRD) (>89) Glucose (70-100) mg/dL POC Whole Bld Glucose 215 H 123 H (70 - 100) mg/dL Calcium (8.5-10.3) mg/dL Phosphorus (2.5-4.6) mg/dL Magnesium (1.7-2.8) mg/dL Triglycerides ( - 149) mg/dL Lipase (22-51) U/L Serum Ketones SMALL H (NEGATIVE) 08/23/22 08/23/22 08/23/22 Range/Units 18:59 18:05 16:43 VBG pH (7.31-7.41) Ionized Calcium (1.15-1.33) mmol/L Sodium (135-145) mmol/L Potassium (3.5-5.0) mmol/L Chloride (101-111) mmol/L Carbon Dioxide (21-32) mmol/L Anion Gap (6-13) BUN (6-20) mg/dL Creatinine (0.6-1.2) mg/dL Estimated GFR (MDRD) (>89) Glucose (70-100) mg/dL POC Whole Bld Glucose 127 H (70 - 100) mg/dL Calcium (8.5-10.3) mg/dL Phosphorus (2.5-4.6) mg/dL Magnesium (1.7-2.8) mg/dL Triglycerides ( - 149) mg/dL Lipase (22-51) U/L Serum Ketones SMALL H SMALL H (NEGATIVE) Assessment/Plan - Problem List (1) DKA, type 1 Impression: Details of Hx was from his mother to me on day of admission. He did report to me the well water intake, which lead to vomiting. His A1c came back at 9.8 indicating poor glu control, and the mother had mentioned by phone yesterday that he checks his glu not frequently enough. He was put on DKA protocol, in ICU, on IV NS at 175 cc/hr and later added D5 iv when his glu dropped <200. He was given iv antiemetics and put on bowel rest at admission w/ NPO diet order except sips and ice chips. His Large ketones are only down to small ketones today (all labs were reviewed). His glu are running better at 120-190 today Plan: Continue with DKA protocol until serum ketones are neg, continue insulin drip, remain in the ICU continue fingerstick checks, continue hypoglycemia protocol Continue close lab monitoring of his glucose levels, electrolytes Continue iv fluids Will start his diet starting at dinnertime today with clear liquids. Continue prn IV antiemetics I have requested a nutrition/DM consult as well, to give recommendations going forward If he develops diarrhea, will send stool for bacterial cultures, given the finding on CT abd/pelvis that was done today (see #3) Qualifiers: Qualified Code(s): E10.11 - Type 1 diabetes mellitus with ketoacidosis with coma (2) Pancreatitis Due to N/V and epigastric tenderness, a Lipase level was checked and came back at 636 (labs were reviewed). I ordered a CT abd to evaluate the pancreas, and CT showed inflammation of tail of pancreas. His lipase level was followed. Today Lipase is still 636. Given the pancreatitis without a Hx of alcoholism, or any gallstones on CT, I checked his Triglyceride level, which was minimally elevated at 230, which may have added to the pancreatitis. Plan: Since his abdominal symptom is overall lower, we will start clear liquid diet later today, advance as tolerated (3) Duodenitis CT abdomen also reported inflammation of the duodenum at the C loop. This may be inflammed from the neighboring panceas or possibly the bad tasting well water he drank caused this duodenal finding. Plan: If he develops diarrhea, will send stool for bacterial cultures, given the finding on CT abd/pelvis that was done today (see #3) Continue stress ulcer meds for prophylaxis (4) Hypertriglyceridemia His labs did show a Trigl elevation of 230. His CT abd also reported focally fatty liver Plan: His poor glucose control is adding to these high Trigl since glu is stored as Triglycerides in the body. After a diet is eventually resumed, will discuss possible Fenofibrate use after Dch, or stricter glu control. I have requested a nutrition/DM consult as well, to give recommendations going forward (5) Hypokalemia, hypophosphatemia, hypomagnesemia These many electrolyte abnormalities are noted (all labs were reviewed), likely from N/V, then inadequate intake Plan: Replace the low levels Remain on ICU electrolyte protocol (6) ADHD Conclusion/Plan: According to his mother this patient has ADHD with depression but refuses to take any meds for this. At admission he appeared very anxious, on top of having tachypnea due to his metabolic acidosis. Yesterday and today he seems more relaxed Plan: Continue prn iv Ativan to treat his anxiety, will decrease the dose and the frequency (7) History of TIA (transient ischemic attack) Conclusion/Plan: If that was the final Dx, he should be on daily baby aspirin. Plan: The finalized med list from pharmacy does not show any ASA. I will check with his mother if any other meds are being ordered for him, or perhaps he takes OTC ASA Qualifiers: Qualified Code(s): E10.11 - Type 1 diabetes mellitus with ketoacidosis with coma
[2022-08-25] MEDS: oxyCODONE 5 MG TABLET PO PRN ×3 (01:34→22:53)
[2022-08-25] MEDS: SODIUM CHLORIDE FLUSH 0.9% 10 ML SYRINGE IVP SCH ×3 (01:44→17:17)
[2022-08-25] MEDS: POTASSIUM CHLORIDE 20 MEQ TABLET PO SCH ×2 (01:44)
[2022-08-25] MEDS: DEXTROSE 5% 1,000 ML IV SCH (02:25)
[2022-08-25] MEDS: SODIUM CHLORIDE 0.9% 1,000 ML IV SCH (04:37)
[2022-08-25] MEDS: INSULIN REGULAR IN 0.9 % NS 100 UNIT/100 ML BAG IV SCH (04:38)
[2022-08-25 04:42] LABS: CALCIUM, IONIZED 1.1 mmol/L (1.15-1.33); VBG PH 7.438 (7.31-7.41)
[2022-08-25 04:56] LABS: MAGNESIUM 1.7 mg/dL (1.7-2.8); PHOSPHORUS 2.5 mg/dL (2.5-4.6)
[2022-08-25] MEDS ORDERED: POTASSIUM PHOSPHATE 15 MMOL in SODIUM CHLORIDE 0.9% 250 ML IV ONE (08:00)
[2022-08-25] MEDS ORDERED: MAGNESIUM OXIDE 400 MG TABLET PO ONE (08:00)
[2022-08-25] MEDS: SODIUM CHLORIDE FLUSH 0.9% 10 ML SYRINGE IVP PRN ×2 (08:15→14:33)
[2022-08-25] MEDS: FAMOTIDINE 20 MG/2 ML VIAL IVP SCH ×2 (08:15→20:15)
[2022-08-25] MEDS ORDERED: DEXTROSE 5% 1,000 ML IV SCH (08:28)
[2022-08-25 08:31] LABS: BASOPHILS % (AUTO) 0.3 %; EOSINOPHILS # (AUTO) 0.1 10^3/uL (0.0-0.7); EOSINOPHILS % (AUTO) 1.9 %; HCT - HEMATOCRIT 32.9 % (42.0-52.0); HGB - HEMOGLOBIN 10.8 g/dL (14.0-18.0); LYMPHOCYTES # (AUTO) 1.1 10^3/uL (1.5-3.5); LYMPHOCYTES % (AUTO) 19.8 %; MEAN CORPUSCULAR HEMOGLOBIN 30.1 pg (27.0-31.0); MEAN CORPUSCULAR HGB CONC 32.8 g/dL (32.0-36.0); MEAN CORPUSCULAR VOLUME 91.6 fL (80.0-94.0); MEAN PLATELET VOLUME 11.9 fL (7.4-11.4); MONOCYTES # (AUTO) 0.5 10^3/uL (0.0-1.0); MONOCYTES % (AUTO) 9.4 %; NEUTROPHILS # (AUTO) 3.9 10^3/uL (1.5-6.6); NEUTROPHILS % (AUTO) 68.4 %; PLT - PLATELET COUNT 140 10^3/uL (130-450); RED BLOOD COUNT 3.59 10^6/uL (4.70-6.10); RED CELL DISTRIBUTION WIDTH 12.8 % (12.0-15.0); WHITE BLOOD COUNT 5.7 x10^3/uL (4.8-10.8)
[2022-08-25 08:56] LABS: KETONES, SERUM (ACETEST) NEGATIVE (NEGATIVE)
[2022-08-25 09:17] LABS: ALBUMIN 2.7 g/dL (3.2-5.5); ALBUMIN/GLOBULIN RATIO 0.8 (1.0-2.2); ALKALINE PHOSPHATASE 125 IU/L (42-121); ALT ALANINE AMINOTRANSFERASE 14 IU/L (10-60); AST ASPARTATE AMINOTRANSFERASE 13 IU/L (10-42); BILIRUBIN,TOTAL 1.1 mg/dL (0.2-1.0); BUN - BLOOD UREA NITROGEN < 5 mg/dL (6-20); CALCIUM 8.1 mg/dL (8.5-10.3); CARBON DIOXIDE - CO2 22 mmol/L (21-32); CHLORIDE 106 mmol/L (101-111); CREATININE 0.5 mg/dL (0.6-1.2); GFR - MDRD 203 (>89); GLUCOSE 213 mg/dL (70-100); POTASSIUM 2.9 mmol/L (3.5-5.0); SODIUM 137 mmol/L (135-145)
[2022-08-25] MEDS: INSULIN NPH HUMAN 100 UNIT/1 ML 10 ML MDV SUBQ SCH ×2 (09:39→20:16)
[2022-08-25] MEDS ORDERED: SODIUM CHLORIDE 0.9% 1,000 ML IV SCH (10:15)
[2022-08-25] MEDS ORDERED: HYDROmorphone 0.5 MG/0.5 ML SYRINGE IVP PRN (10:16)
[2022-08-25] MEDS ORDERED: LORazepam 2 MG/ML VIAL IVP PRN ×2 (10:17→12:03)
--- NOTE | 2022-08-25 12:07 | PROVIDER PROGRESS NOTE ---
Subjective - Subjective Pt reports feeling: Improved (No further abdominal discomfort. He is very sleepy, says he did not sleep well the past 2 night) Objective - Vital Signs/Intake & Output Intake & Output: Intake & Output 08/22/22 08/23/22 08/24/22 08/25/22 23:59 23:59 23:59 23:59 Intake Total 6034.238 8253.611 7649.264 5064.776 Output Total 3885 3865 4100 1975 Balance 2149.238 4388.611 3549.264 3089.776 - Objective General Appearance: positive: No acute distress, Lethargic Eyes Bilateral: positive: Normal inspection, No lid inflammation ENT: positive: ENT inspection nml, No signs of dehydration Neck: positive: Nml inspection, No JVD Respiratory: positive: No respiratory distress Cardiovascular: positive: Regular rate & rhythm Abdomen: positive: Non-tender, No distention Skin: positive: Warm, Dry Extremities: positive: Non-tender, No pedal edema Neurologic/Psychiatric: positive: Oriented x3, Motor nml - Lab Results Fish Bones: 08/25/22 04:23 08/25/22 08:45 Other Labs: Lab Results x24hrs 08/25/22 08/25/22 08/25/22 Range/Units 11:02 10:02 09:02 WBC (4.8-10.8) x10^3/uL RBC (4.70-6.10) 10^6/uL Hgb (14.0-18.0) g/dL Hct (42.0-52.0) % MCV (80.0-94.0) fL MCH (27.0-31.0) pg MCHC (32.0-36.0) g/dL RDW (12.0-15.0) % Plt Count (130-450) 10^3/uL MPV (7.4-11.4) fL Neut # (Auto) (1.5-6.6) 10^3/uL Lymph # (Auto) (1.5-3.5) 10^3/uL [place] # (Auto) (0.0-1.0) 10^3/uL Eos # (Auto) (0.0-0.7) 10^3/uL Baso # (Auto) (0.0-0.1) 10^3/uL Absolute Nucleated RBC x10^3/uL Nucleated RBC % /100WBC VBG pH (7.31-7.41) Ionized Calcium (1.15-1.33) mmol/L Sodium (135-145) mmol/L Potassium (3.5-5.0) mmol/L Chloride (101-111) mmol/L Carbon Dioxide (21-32) mmol/L Anion Gap (6-13) BUN (6-20) mg/dL Creatinine (0.6-1.2) mg/dL Estimated GFR (MDRD) (>89) Glucose (70-100) mg/dL POC Whole Bld Glucose 284 H 221 H 207 H (70 - 100) mg/dL Calcium (8.5-10.3) mg/dL Phosphorus (2.5-4.6) mg/dL Magnesium (1.7-2.8) mg/dL Total Bilirubin (0.2-1.0) mg/dL AST (10-42) IU/L ALT (10-60) IU/L Alkaline Phosphatase (42-121) IU/L Total Protein (6.7-8.2) g/dL Albumin (3.2-5.5) g/dL Globulin (2.1-4.2) g/dL Albumin/Globulin Ratio (1.0-2.2) Triglycerides ( - 149) mg/dL Lipase (22-51) U/L Serum Ketones (NEGATIVE) 08/25/22 08/25/22 08/25/22 Range/Units 08:45 07:54 06:00 WBC (4.8-10.8) x10^3/uL RBC (4.70-6.10) 10^6/uL Hgb (14.0-18.0) g/dL Hct (42.0-52.0) % MCV (80.0-94.0) fL MCH (27.0-31.0) pg MCHC (32.0-36.0) g/dL RDW (12.0-15.0) % Plt Count (130-450) 10^3/uL MPV (7.4-11.4) fL Neut # (Auto) (1.5-6.6) 10^3/uL Lymph # (Auto) (1.5-3.5) 10^3/uL [place] # (Auto) (0.0-1.0) 10^3/uL Eos # (Auto) (0.0-0.7) 10^3/uL Baso # (Auto) (0.0-0.1) 10^3/uL Absolute Nucleated RBC x10^3/uL Nucleated RBC % /100WBC VBG pH (7.31-7.41) Ionized Calcium (1.15-1.33) mmol/L Sodium 137 (135-145) mmol/L Potassium 2.9 L (3.5-5.0) mmol/L Chloride 106 (101-111) mmol/L Carbon Dioxide 22 (21-32) mmol/L Anion Gap 9.0 (6-13) BUN < 5 L (6-20) mg/dL Creatinine 0.5 L (0.6-1.2) mg/dL Estimated GFR (MDRD) 203 (>89) Glucose 213 H (70-100) mg/dL POC Whole Bld Glucose 185 H 176 H (70 - 100) mg/dL Calcium 8.1 L (8.5-10.3) mg/dL Phosphorus (2.5-4.6) mg/dL Magnesium (1.7-2.8) mg/dL Total Bilirubin 1.1 H (0.2-1.0) mg/dL AST 13 (10-42) IU/L ALT 14 (10-60) IU/L Alkaline Phosphatase 125 H (42-121) IU/L Total Protein 6.0 L (6.7-8.2) g/dL Albumin 2.7 L (3.2-5.5) g/dL Globulin 3.3 (2.1-4.2) g/dL Albumin/Globulin Ratio 0.8 L (1.0-2.2) Triglycerides ( - 149) mg/dL Lipase (22-51) U/L Serum Ketones NEGATIVE (NEGATIVE) 08/25/22 08/25/22 08/25/22 Range/Units 04:23 04:23 04:23 WBC 5.7 (4.8-10.8) x10^3/uL RBC 3.59 L (4.70-6.10) 10^6/uL Hgb 10.8 L (14.0-18.0) g/dL Hct 32.9 L (42.0-52.0) % MCV 91.6 (80.0-94.0) fL MCH 30.1 (27.0-31.0) pg MCHC 32.8 (32.0-36.0) g/dL RDW 12.8 (12.0-15.0) % Plt Count 140 (130-450) 10^3/uL MPV 11.9 H (7.4-11.4) fL Neut # (Auto) 3.9 (1.5-6.6) 10^3/uL Lymph # (Auto) 1.1 L (1.5-3.5) 10^3/uL [place] # (Auto) 0.5 (0.0-1.0) 10^3/uL Eos # (Auto) 0.1 (0.0-0.7) 10^3/uL Baso # (Auto) 0.0 (0.0-0.1) 10^3/uL Absolute Nucleated RBC 0.00 x10^3/uL Nucleated RBC % 0.0 /100WBC VBG pH 7.438 H (7.31-7.41) Ionized Calcium 1.10 L (1.15-1.33) mmol/L Sodium (135-145) mmol/L Potassium 3.2 L (3.5-5.0) mmol/L Chloride (101-111) mmol/L Carbon Dioxide (21-32) mmol/L Anion Gap (6-13) BUN (6-20) mg/dL Creatinine (0.6-1.2) mg/dL Estimated GFR (MDRD) (>89) Glucose (70-100) mg/dL POC Whole Bld Glucose (70 - 100) mg/dL Calcium (8.5-10.3) mg/dL Phosphorus (2.5-4.6) mg/dL Magnesium (1.7-2.8) mg/dL Total Bilirubin (0.2-1.0) mg/dL AST (10-42) IU/L ALT (10-60) IU/L Alkaline Phosphatase (42-121) IU/L Total Protein (6.7-8.2) g/dL Albumin (3.2-5.5) g/dL Globulin (2.1-4.2) g/dL Albumin/Globulin Ratio (1.0-2.2) Triglycerides ( - 149) mg/dL Lipase (22-51) U/L Serum Ketones (NEGATIVE) 08/25/22 08/25/22 08/25/22 Range/Units 04:23 04:03 03:00 WBC (4.8-10.8) x10^3/uL RBC (4.70-6.10) 10^6/uL Hgb (14.0-18.0) g/dL Hct (42.0-52.0) % MCV (80.0-94.0) fL MCH (27.0-31.0) pg MCHC (32.0-36.0) g/dL RDW (12.0-15.0) % Plt Count (130-450) 10^3/uL MPV (7.4-11.4) fL Neut # (Auto) (1.5-6.6) 10^3/uL Lymph # (Auto) (1.5-3.5) 10^3/uL [place] # (Auto) (0.0-1.0) 10^3/uL Eos # (Auto) (0.0-0.7) 10^3/uL Baso # (Auto) (0.0-0.1) 10^3/uL Absolute Nucleated RBC x10^3/uL Nucleated RBC % /100WBC VBG pH (7.31-7.41) Ionized Calcium (1.15-1.33) mmol/L Sodium (135-145) mmol/L Potassium (3.5-5.0) mmol/L Chloride (101-111) mmol/L Carbon Dioxide (21-32) mmol/L Anion Gap (6-13) BUN (6-20) mg/dL Creatinine (0.6-1.2) mg/dL Estimated GFR (MDRD) (>89) Glucose (70-100) mg/dL POC Whole Bld Glucose 173 H 161 H (70 - 100) mg/dL Calcium (8.5-10.3) mg/dL Phosphorus 2.5 (2.5-4.6) mg/dL Magnesium 1.7 (1.7-2.8) mg/dL Total Bilirubin (0.2-1.0) mg/dL AST (10-42) IU/L ALT (10-60) IU/L Alkaline Phosphatase (42-121) IU/L Total Protein (6.7-8.2) g/dL Albumin (3.2-5.5) g/dL Globulin (2.1-4.2) g/dL Albumin/Globulin Ratio (1.0-2.2) Triglycerides 120 ( - 149) mg/dL Lipase 294 H (22-51) U/L Serum Ketones (NEGATIVE) 08/25/22 08/25/22 08/25/22 Range/Units 02:02 01:03 00:10 WBC (4.8-10.8) x10^3/uL RBC (4.70-6.10) 10^6/uL Hgb (14.0-18.0) g/dL Hct (42.0-52.0) % MCV (80.0-94.0) fL MCH (27.0-31.0) pg MCHC (32.0-36.0) g/dL RDW (12.0-15.0) % Plt Count (130-450) 10^3/uL MPV (7.4-11.4) fL Neut # (Auto) (1.5-6.6) 10^3/uL Lymph # (Auto) (1.5-3.5) 10^3/uL [place] # (Auto) (0.0-1.0) 10^3/uL Eos # (Auto) (0.0-0.7) 10^3/uL Baso # (Auto) (0.0-0.1) 10^3/uL Absolute Nucleated RBC x10^3/uL Nucleated RBC % /100WBC VBG pH (7.31-7.41) Ionized Calcium (1.15-1.33) mmol/L Sodium (135-145) mmol/L Potassium (3.5-5.0) mmol/L Chloride (101-111) mmol/L Carbon Dioxide (21-32) mmol/L Anion Gap (6-13) BUN (6-20) mg/dL Creatinine (0.6-1.2) mg/dL Estimated GFR (MDRD) (>89) Glucose (70-100) mg/dL POC Whole Bld Glucose 161 H 137 H 111 H (70 - 100) mg/dL Calcium (8.5-10.3) mg/dL Phosphorus (2.5-4.6) mg/dL Magnesium (1.7-2.8) mg/dL Total Bilirubin (0.2-1.0) mg/dL AST (10-42) IU/L ALT (10-60) IU/L Alkaline Phosphatase (42-121) IU/L Total Protein (6.7-8.2) g/dL Albumin (3.2-5.5) g/dL Globulin (2.1-4.2) g/dL Albumin/Globulin Ratio (1.0-2.2) Triglycerides ( - 149) mg/dL Lipase (22-51) U/L Serum Ketones (NEGATIVE) 08/24/22 08/24/22 08/24/22 Range/Units 23:03 22:09 22:03 WBC (4.8-10.8) x10^3/uL RBC (4.70-6.10) 10^6/uL Hgb (14.0-18.0) g/dL Hct (42.0-52.0) % MCV (80.0-94.0) fL MCH (27.0-31.0) pg MCHC (32.0-36.0) g/dL RDW (12.0-15.0) % Plt Count (130-450) 10^3/uL MPV (7.4-11.4) fL Neut # (Auto) (1.5-6.6) 10^3/uL Lymph # (Auto) (1.5-3.5) 10^3/uL [place] # (Auto) (0.0-1.0) 10^3/uL Eos # (Auto) (0.0-0.7) 10^3/uL Baso # (Auto) (0.0-0.1) 10^3/uL Absolute Nucleated RBC x10^3/uL Nucleated RBC % /100WBC VBG pH (7.31-7.41) Ionized Calcium (1.15-1.33) mmol/L Sodium (135-145) mmol/L Potassium 3.0 L (3.5-5.0) mmol/L Chloride (101-111) mmol/L Carbon Dioxide (21-32) mmol/L Anion Gap (6-13) BUN (6-20) mg/dL Creatinine (0.6-1.2) mg/dL Estimated GFR (MDRD) (>89) Glucose (70-100) mg/dL POC Whole Bld Glucose 144 H 153 H (70 - 100) mg/dL Calcium (8.5-10.3) mg/dL Phosphorus 2.0 L (2.5-4.6) mg/dL Magnesium (1.7-2.8) mg/dL Total Bilirubin (0.2-1.0) mg/dL AST (10-42) IU/L ALT (10-60) IU/L Alkaline Phosphatase (42-121) IU/L Total Protein (6.7-8.2) g/dL Albumin (3.2-5.5) g/dL Globulin (2.1-4.2) g/dL Albumin/Globulin Ratio (1.0-2.2) Triglycerides ( - 149) mg/dL Lipase (22-51) U/L Serum Ketones (NEGATIVE) 08/24/22 08/24/22 08/24/22 Range/Units 20:58 20:31 19:42 WBC (4.8-10.8) x10^3/uL RBC (4.70-6.10) 10^6/uL Hgb (14.0-18.0) g/dL Hct (42.0-52.0) % MCV (80.0-94.0) fL MCH (27.0-31.0) pg MCHC (32.0-36.0) g/dL RDW (12.0-15.0) % Plt Count (130-450) 10^3/uL MPV (7.4-11.4) fL Neut # (Auto) (1.5-6.6) 10^3/uL Lymph # (Auto) (1.5-3.5) 10^3/uL [place] # (Auto) (0.0-1.0) 10^3/uL Eos # (Auto) (0.0-0.7) 10^3/uL Baso # (Auto) (0.0-0.1) 10^3/uL Absolute Nucleated RBC x10^3/uL Nucleated RBC % /100WBC VBG pH (7.31-7.41) Ionized Calcium (1.15-1.33) mmol/L Sodium (135-145) mmol/L Potassium (3.5-5.0) mmol/L Chloride (101-111) mmol/L Carbon Dioxide (21-32) mmol/L Anion Gap (6-13) BUN (6-20) mg/dL Creatinine (0.6-1.2) mg/dL Estimated GFR (MDRD) (>89) Glucose (70-100) mg/dL POC Whole Bld Glucose 175 H 184 H 205 H (70 - 100) mg/dL Calcium (8.5-10.3) mg/dL Phosphorus (2.5-4.6) mg/dL Magnesium (1.7-2.8) mg/dL Total Bilirubin (0.2-1.0) mg/dL AST (10-42) IU/L ALT (10-60) IU/L Alkaline Phosphatase (42-121) IU/L Total Protein (6.7-8.2) g/dL Albumin (3.2-5.5) g/dL Globulin (2.1-4.2) g/dL Albumin/Globulin Ratio (1.0-2.2) Triglycerides ( - 149) mg/dL Lipase (22-51) U/L Serum Ketones (NEGATIVE) 08/24/22 08/24/22 08/24/22 Range/Units 18:35 17:24 16:33 WBC (4.8-10.8) x10^3/uL RBC (4.70-6.10) 10^6/uL Hgb (14.0-18.0) g/dL Hct (42.0-52.0) % MCV (80.0-94.0) fL MCH (27.0-31.0) pg MCHC (32.0-36.0) g/dL RDW (12.0-15.0) % Plt Count (130-450) 10^3/uL MPV (7.4-11.4) fL Neut # (Auto) (1.5-6.6) 10^3/uL Lymph # (Auto) (1.5-3.5) 10^3/uL [place] # (Auto) (0.0-1.0) 10^3/uL Eos # (Auto) (0.0-0.7) 10^3/uL Baso # (Auto) (0.0-0.1) 10^3/uL Absolute Nucleated RBC x10^3/uL Nucleated RBC % /100WBC VBG pH (7.31-7.41) Ionized Calcium (1.15-1.33) mmol/L Sodium (135-145) mmol/L Potassium (3.5-5.0) mmol/L Chloride (101-111) mmol/L Carbon Dioxide (21-32) mmol/L Anion Gap (6-13) BUN (6-20) mg/dL Creatinine (0.6-1.2) mg/dL Estimated GFR (MDRD) (>89) Glucose (70-100) mg/dL POC Whole Bld Glucose 195 H 196 H 155 H (70 - 100) mg/dL Calcium (8.5-10.3) mg/dL Phosphorus (2.5-4.6) mg/dL Magnesium (1.7-2.8) mg/dL Total Bilirubin (0.2-1.0) mg/dL AST (10-42) IU/L ALT (10-60) IU/L Alkaline Phosphatase (42-121) IU/L Total Protein (6.7-8.2) g/dL Albumin (3.2-5.5) g/dL Globulin (2.1-4.2) g/dL Albumin/Globulin Ratio (1.0-2.2) Triglycerides ( - 149) mg/dL Lipase (22-51) U/L Serum Ketones (NEGATIVE) 08/24/22 08/24/22 08/24/22 Range/Units 15:34 14:31 14:07 WBC (4.8-10.8) x10^3/uL RBC (4.70-6.10) 10^6/uL Hgb (14.0-18.0) g/dL Hct (42.0-52.0) % MCV (80.0-94.0) fL MCH (27.0-31.0) pg MCHC (32.0-36.0) g/dL RDW (12.0-15.0) % Plt Count (130-450) 10^3/uL MPV (7.4-11.4) fL Neut # (Auto) (1.5-6.6) 10^3/uL Lymph # (Auto) (1.5-3.5) 10^3/uL [place] # (Auto) (0.0-1.0) 10^3/uL Eos # (Auto) (0.0-0.7) 10^3/uL Baso # (Auto) (0.0-0.1) 10^3/uL Absolute Nucleated RBC x10^3/uL Nucleated RBC % /100WBC VBG pH (7.31-7.41) Ionized Calcium (1.15-1.33) mmol/L Sodium (135-145) mmol/L Potassium 3.1 L (3.5-5.0) mmol/L Chloride (101-111) mmol/L Carbon Dioxide (21-32) mmol/L Anion Gap (6-13) BUN (6-20) mg/dL Creatinine (0.6-1.2) mg/dL Estimated GFR (MDRD) (>89) Glucose (70-100) mg/dL POC Whole Bld Glucose 116 H 124 H (70 - 100) mg/dL Calcium (8.5-10.3) mg/dL Phosphorus 1.6 L (2.5-4.6) mg/dL Magnesium (1.7-2.8) mg/dL Total Bilirubin (0.2-1.0) mg/dL AST (10-42) IU/L ALT (10-60) IU/L Alkaline Phosphatase (42-121) IU/L Total Protein (6.7-8.2) g/dL Albumin (3.2-5.5) g/dL Globulin (2.1-4.2) g/dL Albumin/Globulin Ratio (1.0-2.2) Triglycerides ( - 149) mg/dL Lipase (22-51) U/L Serum Ketones (NEGATIVE) 08/24/22 08/24/22 Range/Units 13:39 12:50 WBC (4.8-10.8) x10^3/uL RBC (4.70-6.10) 10^6/uL Hgb (14.0-18.0) g/dL Hct (42.0-52.0) % MCV (80.0-94.0) fL MCH (27.0-31.0) pg MCHC (32.0-36.0) g/dL RDW (12.0-15.0) % Plt Count (130-450) 10^3/uL MPV (7.4-11.4) fL Neut # (Auto) (1.5-6.6) 10^3/uL Lymph # (Auto) (1.5-3.5) 10^3/uL [place] # (Auto) (0.0-1.0) 10^3/uL Eos # (Auto) (0.0-0.7) 10^3/uL Baso # (Auto) (0.0-0.1) 10^3/uL Absolute Nucleated RBC x10^3/uL Nucleated RBC % /100WBC VBG pH (7.31-7.41) Ionized Calcium (1.15-1.33) mmol/L Sodium (135-145) mmol/L Potassium (3.5-5.0) mmol/L Chloride (101-111) mmol/L Carbon Dioxide (21-32) mmol/L Anion Gap (6-13) BUN (6-20) mg/dL Creatinine (0.6-1.2) mg/dL Estimated GFR (MDRD) (>89) Glucose (70-100) mg/dL POC Whole Bld Glucose 121 H 129 H (70 - 100) mg/dL Calcium (8.5-10.3) mg/dL Phosphorus (2.5-4.6) mg/dL Magnesium (1.7-2.8) mg/dL Total Bilirubin (0.2-1.0) mg/dL AST (10-42) IU/L ALT (10-60) IU/L Alkaline Phosphatase (42-121) IU/L Total Protein (6.7-8.2) g/dL Albumin (3.2-5.5) g/dL Globulin (2.1-4.2) g/dL Albumin/Globulin Ratio (1.0-2.2) Triglycerides ( - 149) mg/dL Lipase (22-51) U/L Serum Ketones (NEGATIVE) Assessment/Plan - Problem List (1) DKA, type 1 Impression: Details of Hx was from his mother to me on day of admission. He did report to me the well water intake, which lead to vomiting. His A1c came back at 9.8 indicating poor glu control, and the mother had men tioned by phone yesterday that he checks his glu not frequently enough. He was put on DKA protocol, in ICU, on IV NS at 175 cc/hr and later added D5 iv when his glu dropped <200. He was given iv antiemetics and put on bowel rest at admission w/ NPO diet order except sips and ice chips. Yesterday 08/24 he started clear liquids for dinner and tolearted that. His Large ketones were down to small ketones for the last 2 days. This a.m. 08/25 ketones are neg (all labs were reviewed). Plan: Will stop Insulin drip, start NPH Insulin BID this morning. Start ss Insulin and continue fingerstick checks, continue hypoglycemia protocol Continue close lab monitoring of his glucose levels, electrolytes Will decrease all his iv fluids Will advance diet today. If tolerated, he may possibly be moved out of ICU later today. Continue prn IV antiemetics I have requested a nutrition/DM consult as well, to give recommendations going forward If he develops diarrhea, will send stool for bacterial cultures, given the finding on CT abd/pelvis that was done today (see #3) I updated his mother by phone call today on all his diagnoses and the plan Qualifiers: Qualified Code(s): E10.11 - Type 1 diabetes mellitus with ketoacidosis with coma (2) Pancreatitis Due to N/V and epigastric tenderness, a Lipase level was checked and came back at 636 (labs were reviewed). I ordered a CT abd to evaluate the pancreas, and CT showed inflammation of tail of pancreas. His lipase level was followed. The following day Lipase was still 636, but today lipase level is down to 294. Given the pancreatitis without a Hx of alcoholism, or any gallstones on CT, I checked his Triglyceride level, which was minimally elevated at 234, which may have added to the pancreatitis. Plan: Will advance diet today (3) Duodenitis CT abdomen also reported inflammation of the duodenum at the C loop. This may be inflammed from the neighboring panceas or possibly the bad tasting well water he drank caused this duodenal finding. Plan: If he develops diarrhea, will send stool for bacterial cultures, given the finding on CT abd/pelvis that was done today (see #3) Continue stress ulcer meds for prophylaxis (4) Hypertriglyceridemia His labs did show a Trigl elevation of 230. His CT abd also reported focally fatty liver Plan: His poor glucose control is adding to these high Trigl since glu is stored as Triglycerides in the body. After a diet is eventually resumed, will discuss possible Fenofibrate use after Dch, or stricter glu control. I have requested a nutrition/DM consult as well, to give recommendations going forward (5) Hypokalemia, hypophosphatemia, hypomagnesemia These many electrolyte abnormalities are noted (all labs were reviewed), likely from N/V, then inadequate intake Plan: Replace the low levels Remain on ICU protocol (6) ADHD Conclusion/Plan: According to his mother this patient has ADHD with depression but refuses to take any meds for this. At admission he appeared very anxious, on top of having tachypnea due to his metabolic acidosis. Yesterday and today he seems more relaxed Plan: Continue prn iv Ativan to treat his anxiety, will decrease the dose and the frequency (7) History of TIA (transient ischemic attack) Conclusion/Plan: If that was the final Dx, he should be on daily baby aspirin. Plan: The finalized med list from pharmacy does not show any ASA. I will check with his mother if any other meds are being ordered for him, or perhaps he takes OTC ASA Qualifiers:
[2022-08-25] MEDS: INSULIN LISPRO 300 UNIT/3 ML PEN SUBQ SCH ×3 (12:14→20:15)
[2022-08-25] MEDS: POTASSIUM CHLOR 10 MEQ/100 ML 10 MEQ/100 ML BAG IV SCH ×4 (12:24→15:37)
[2022-08-25 15:01] LABS: MAGNESIUM 1.9 mg/dL (1.7-2.8); PHOSPHORUS 2.7 mg/dL (2.5-4.6)
[2022-08-25] MEDS ORDERED: POTASSIUM CHLORIDE 20 MEQ/15 ML UDC PO ONE (17:56)
[2022-08-26 04:42] LABS: BASOPHILS % (AUTO) 0.6 %; CALCIUM, IONIZED 1.14 mmol/L (1.15-1.33); EOSINOPHILS # (AUTO) 0.2 10^3/uL (0.0-0.7); EOSINOPHILS % (AUTO) 4.4 %; HCT - HEMATOCRIT 32.8 % (42.0-52.0); HGB - HEMOGLOBIN 10.9 g/dL (14.0-18.0); LYMPHOCYTES # (AUTO) 1.4 10^3/uL (1.5-3.5); LYMPHOCYTES % (AUTO) 26.9 %; MEAN CORPUSCULAR HEMOGLOBIN 30.3 pg (27.0-31.0); MEAN CORPUSCULAR HGB CONC 33.2 g/dL (32.0-36.0); MEAN CORPUSCULAR VOLUME 91.1 fL (80.0-94.0); MEAN PLATELET VOLUME 10.5 fL (7.4-11.4); MONOCYTES # (AUTO) 0.5 10^3/uL (0.0-1.0); MONOCYTES % (AUTO) 8.8 %; NEUTROPHILS # (AUTO) 3.1 10^3/uL (1.5-6.6); NEUTROPHILS % (AUTO) 58.9 %; PLT - PLATELET COUNT 152 10^3/uL (130-450); RED CELL DISTRIBUTION WIDTH 12.5 % (12.0-15.0); VBG PH 7.451 (7.31-7.41); WHITE BLOOD COUNT 5.2 x10^3/uL (4.8-10.8)
[2022-08-26 04:54] LABS: CALCIUM 8.6 mg/dL (8.5-10.3); CREATININE 0.7 mg/dL (0.6-1.2); PHOSPHORUS 3.9 mg/dL (2.5-4.6); POTASSIUM 3.8 mmol/L (3.5-5.0)
[2022-08-26] MEDS: SODIUM CHLORIDE FLUSH 0.9% 10 ML SYRINGE IVP SCH ×2 (05:09→08:24)
--- NOTE | 2022-08-26 07:38 | Discharge Plan ---
Discharge Plan Problem Reviewed?: Yes Disposition: Home, Self Care Condition: Stable Diet: Diabetic Activity Restrictions: Activity as Tolerated Shower Restrictions: No Driving Restrictions: No Instruction Topics: Diabetes Sick Day Plan Health Concerns: You were hospitalized to treat DKA. We also found that you had pancreatic and duodenal (small bowel) inflammation. Possibly the inflammation was caused by drinking well water. You are being discharged home today. Please go back to your usual insulin doses and management of your blood sugars. We checked your A1c and it was 9.8 which is not a good number. You need to do fingerstick checks more often to have a better overall correction of your blood glucose level. Please see your primary care provider for further management and adjustments of your insulin and monitoring; you may need a CGM (continuous glucose monitor). Plan of Treatment: As above. Care Goals: Improvement in symptoms and stabilization are the goals. Assessment: The patient understands and is agreeable with the plan. No Smoking: If you smoke, Please STOP! Call for help.
[2022-08-26] MEDS: FAMOTIDINE 20 MG/2 ML VIAL IVP SCH (08:14)
[2022-08-26] MEDS: INSULIN NPH HUMAN 100 UNIT/1 ML 10 ML MDV SUBQ SCH (08:16)
[2022-08-26] MEDS: INSULIN LISPRO 300 UNIT/3 ML PEN SUBQ SCH ×2 (08:23→12:24)
[2022-08-26] MEDS ORDERED: POTASSIUM CHLORIDE 20 MEQ/15 ML UDC PO ONE (09:00)
--- NOTE | 2022-08-26 10:39 | DISCHARGE SUMMARY ---
Discharge Summary Admit Date: 08/22/22 Discharge Date: 08/26/22 Discharging Provider: Dr Dilia Tong Primary Care Provider: Dr Cody Kate Condition at Discharge: Stable Discharge Disposition: 01 Home, Self Care - HPI History of Present Illness: This is a 27-year-old male with a history of type 1 diabetes diagnosed at age 19. He also has a history of ADHD with depression and does not want to take medications, according to his mother. He has a history of a quadricuspid aortic valve and does not want to see Pediatric Cardiologist. The patient has had 2 episodes of DKA since age 19, both were with hospitalizations at [facility] in [place], where he lives. The patient is traveling to [facility] from [place] with his girlfriend, they left yesterday, to visit the girlfriend's family who lives on [facility]. Yesterday he felt fine as he left, according to the mo ther. When they arrived at the home on [facility], they were given well water and the girlfriend says it tasted like metal and the patient says it "tasted like blood". The girlfriend added that it tasted like blood because he had a cut lip and was probably swallowing some of his own blood. He started vomiting yesterday. Today he was taken to a clinic by family members and his glucose was found to be over 400 and an ambulance was contacted to bring him to the ER. The patient was having rapid breathing, was in severe distress with nausea and vomiting, and work-up showed that he has a pH of 6.9, elevated anion gap, large serum ketones, and glucose 497. He was started on IV fluids and the DKA protocol in the ED. The ED provider contacted me and we discussed this patient. He will be admitted to the ICU for DKA protocol. Patient continues to have abdominal discomfort and is nauseated but is thirsty. He denies any recent URI, fever, cough, diarrhea or other symptoms, until his N/V started. His mother reported to me that he does not check his sugar often enough. The patient says he checks it about 2 times a day. He is taking both long-acting and short acting insulin. - HOSPITAL COURSE Hospital Course: (1) DKA, type 1 Details of his history were from his mother by phone on day of admission. He was in moderate-severe distress, but did report to me the well water intake, which lead to vomiting. He was admitted into the ICU and started on a DKA protocol, on IV NS at 175 cc/hr and later added D5 iv when his glu dropped <200. He was given iv antiemetics prn and put on bowel rest at admission, with NPO o rdered except sips and ice chips. He needed to be put on IV bicarb for 1 day for his severe metabolic acidosis. His serum ketones were monitored frequently, and they did not turn negative until 08/25/22, his third hospital day. His A1c came back at 9.8 indicating poor glu control, and his mother had mentioned that he checks his glu not frequently enough. Eventually he was started on clear liquids, a diabetic diet. The insulin drip was stopped, he was put on NPH insulin twice daily and sliding scale insulin coverage at mealtime. He was discharged in stable condition. He had lost his glucometer on this trip. So he was prescribed a new glucometer, glucose monitoring strips, lancets and insulin needles. (2) Pancreatitis Due to N/V and epigastric tenderness, a Lipase level was checked and came back at 636. I ordered a CT abd to evaluate the pancreas, and CT showed inflammation of tail of pancreas. The following day Lipase was still 636, then dropped down to 294. Given the pancreatitis without a Hx of alcoholism, or any gallstones on CT, we checked his Triglyceride level, which was minimally elevated at 234. (3) Duodenitis CT abdomen also reported inflammation of the duodenum at the C loop. This may be inflammed from the neighboring pancreas, or possibly the foul tasting well water that he drank, caused this duodenal finding. He was put on IV twice daily Pepcid. He did need several doses of IV narcotics for his epigastric pain. He never developed diarrhea. (4) Hypertriglyceridemia His labs did show a Triglyceride elevation of 230. His CT of abdomen also reported focally fatty liver (5) Hypokalemia, hypophosphatemia, hypomagnesemia These electrolyte abnormalities were noted, likely from DKA and N/V and inadequate intake. They were all replaced. (6) ADHD According to his mother this patient has ADHD with depression but refuses to take any meds for this. At admission he appeared very anxious, on top of having tachypnea due to his metabolic acidosis. He received prn iv Ativan to treat his anxiety, (7) History of TIA (transient ischemic attack) If that was indeed the final Dx, he should be on baby aspirin daily. The med list finalized by our Pharmacy did not show any ASA. - ALLERGIES Allergies/Adverse Reactions: Allergies Allergy/AdvReac Type Severity Reaction Status Date / Time Penicillins Allergy Unknown Verified 08/22/22 11:26 Sulfa (Sulfonamide Allergy Unknown Verified 08/22/22 11:26 Antibiotics) - MEDICATIONS Home Medications: Ambulatory Orders Medication Instructions Recorded Confirmed Insulin Aspart [Novolog Flexpen] 5 - 20 unit SQ TIDWM MDD 80 UNITS 08/22/22 08/22/22 Insulin Glargine [Lantus Solostar] 50 unit SQ DAILY 08/23/22 08/23/22 Blood Sugar Diagnostic [Glucometer 1 each [facility] #120 strip 08/26/22 Strips] Blood-Glucose Meter [Glucometer] 1 each [facility] #1 each 08/26/22 Lancets [Butterfly Touch Lancet] 1 each [facility] #120 each 08/26/22 [place], Safety [Easypoint Needle] 1 each [facility] #120 ea 08/26/22 - PHYSICAL EXAM AT DISCHARGE General Appearance: positive: No acute distress, Alert Eyes Bilateral: positive: Normal inspection, EOMI ENT: positive: ENT inspection nml, No signs of dehydration Neck: positive: Nml inspection, No JVD Respiratory: positive: No respiratory distress, Breath sounds nml Cardiovascular: positive: Regular rate & rhythm, No murmur Abdomen: positive: Non-tender, Nml bowel sounds, No distention Skin: positive: Warm, Dry Extremities: positive: Non-tender, No pedal edema Neurologic/Psychiatric: positive: Oriented x3, Motor nml - LABS Result Diagrams: 08/26/22 04:32 08/26/22 04:32 - DIAGNOSTIC IMAGING Diagnostic Imaging Results: Final report reviewed - FOLLOW UP Follow Up: See your PCP and/or your Self Pay Specialist in the next 1 to 2 weeks for hospital follow-up visit. - TIME SPENT Time Spent in Discharge (Minutes): 30
[2022-08-26] MEDS: ACETAMINOPHEN 325 MG TABLET PO PRN (11:29)
[2022-08-26 12:19] VITALS: BP 149/81
== END 2022-08-26 13:35 | disposition home or self-care (01) | DRG 637 ==
LOC: ED 11:17 → ICU 13:09
PROVIDERS: ADMIT Internal Medicine; ATTEND Internal Medicine
DX: E10.11 Type 1 diabetes mellitus with ketoacidosis with coma (principal); K85.90 Acute pancreatitis without necrosis or infection, unspecified; Q23.8 Other congenital malformations of aortic and mitral valves; K29.80 Duodenitis without bleeding; E78.1 Pure hyperglyceridemia; E87.6 Hypokalemia; E83.39 Other disorders of phosphorus metabolism; E83.42 Hypomagnesemia; F90.9 Attention-deficit hyperactivity disorder, unspecified type; F32.A Depression, unspecified; R00.0 Tachycardia, unspecified; Z20.822 Contact with and (suspected) exposure to COVID-19; Z79.4 Long term (current) use of insulin; Z80.9 Family history of malignant neoplasm, unspecified; Z81.8 Family history of other mental and behavioral disorders; Z86.73 Personal history of transient ischemic attack (TIA), and cerebral infarction without residual deficits; Z88.0 Allergy status to penicillin; Z88.2 Allergy status to sulfonamides
CPT/HCPCS: 36415; 51702; 71045; 74176; 80048; 80053; 80306; 81001; 82009; 82330; 82803; 82947; 83036; 83605; 83690; 83735; 84100; 84132; 84478; 85025; 87040; 87045; 87046; 87150; 87427; 87633; 93005; 96361; 96374; 99285; 99291; A9270; J1170; J1815; J2060; 81003; 87086